=== PATIENT | female | born 1985 | race Caucasian/White ===

== ENCOUNTER → 2018-01-09 13:00 | Outpatient (CLI) | payer BC, SELFPAY ==
[2018-01-10 14:04] LABS: Basophils % 0.3 % (0.1-2.0); Eosinophils # 0.2 K/mm3 (0.0-0.4); Eosinophils % 1.8 % (0.1-12.0); Hematocrit 44.9 % (37.0-47.0); Hemoglobin 14.8 g/dL (12.2-16.2); Lymphocytes # 3.3 K/mm3 (0.7-4.5); Lymphocytes % 35.6 K/mm3 (10-50); Mean Corpuscular Hemoglobin 31.9 pg (27.0-31.2); Mean Corpuscular Volume 96.9 fl (81-99); Mean Platelet Volume 9.7 fl (7.4-10.4); Monocytes # 0.5 K/mm3 (0.1-1.0); Monocytes % 5.4 % (1.7-9.3); Neutrophils # 5.2 K/mm3 (1.8-7.8); Neutrophils % 56.9 % (37.0-80.0); Platelet Count 413 K/mm3 (142-424); Red Blood Count 4.64 M/mm3 (4.20-5.40); Red Cell Distribution Width 12.5 % (11.5-17.5); White Blood Count 9.2 K/mm3 (4.8-10.8)
[2018-01-10 14:11] LABS: Alanine Aminotransferase 118 U/L (12-78); Albumin Level 4.5 gm/dL (3.4-5.0); Albumin/Globulin Ratio 1.2 (1.1-1.8); Alkaline Phosphatase 119 U/L (46-116); Anion Gap 12.7 mEq/L (5-15); Aspartate Amino Transferase 38 U/L (15-37); Bilirubin,Total 0.3 mg/dL (0.2-1.0); Blood Urea Nitrogen 15 mg/dL (7-18); Calcium 10.2 mg/dL (8.5-10.1); Carbon Dioxide 28 mmol/L (21.0-32.0); Chloride 104 mmol/L (98-107); Chol/HDL Ratio 2.9 (1-3.5); Cholesterol 226 mg/dL (140-200); Creatinine,Serum 0.63 mg/dL (0.55-1.02); Estimated Glomerular Filt Rate 108 ml/min (>60); Free T4 (Free Thyroxine) 0.94 ng/dl (0.76-1.46); GFR (African American) 131 ML/MIN (>60); Globulin 3.8 gm/dl (1.3-3.2); Glucose 98 mg/dL (74-106); HDL Cholesterol 78 mg/dL (29-89); LDL Cholesterol 125 mg/dL (0-130); Potassium 4.7 mmoL/L (3.5-5.1); Sodium 140 mmol/L (136-145); Thyroid Stimulating Hormone 1.29 uIU/ml (0.358-3.740); Total Protein,Serum 8.3 gm/dL (6.4-8.2); Triglycerides 114 mg/dL (30-200); VLDL Cholesterol 23 mg/dL (0-40)
[2018-01-10 15:02] LABS: Hemoglobin A1C 5.6 % (0.0-7.0)
[2018-01-11 07:16] LABS: Hep A Ab, IgM Negative (Negative); Hepatitis B Core Antibody IgM Negative (Negative); Hepatitis B Surface Antigen Negative (Negative)
[2018-01-12 12:07] LABS: Hepatitis C Antibody >11.0 s/co ratio (0.0-0.9); Vitamin D 25 Hydroxy 55.9 ng/mL (30.0-100.0)
== END ==
PROVIDERS: Family Provider Internal Medicine Adolescent Medicine; PCP Nurse Practitioner Family; Visit Provider Nurse Practitioner Family
DX: R53.83 Other fatigue (principal)
CPT/HCPCS: 80053; 80061; 80074; 82652; 83036; 84439; 84443; 85025

== ENCOUNTER 2018-01-11 18:14 | Emergency (ER) | payer BC, SELFPAY ==
[2018-01-11 18:15] VITALS: BP 132/85; PULSE 85; RESP 18; TEMP 36.8; O2SAT 98; BMI 27.4
--- NOTE | 2018-01-11 18:17 | HMH.EDSOB ---
ED Disposition Clinical Impression: Allergic reaction Disposition: Home, Self-Care Condition on Discharge: Good Additional Instructions: 1- medrol dose pack. 2- zantac 150 mg po bid. 3- benadryl 25 mg po q 6 prn 4- follow up with pcp Federica. 5- return if needed. - Critical Care Critical Care Time: No Attestation: On , the high probability of a clinically significant, sudden or life threatening deterioration of the following system(s) required my full and direct attention, intervention and personal management. The time I documented below is in addition to time spent performing reported procedures but includes the following listed in this critical care notation. Medical Decision Making Vital Signs: 01/11/18 18:15 Temperature 98.2 F Temperature Source Oral Pulse Rate [Right Brachial] 85 Respiratory Rate 18 Blood Pressure [Right Arm] 132/85 Blood Pressure Mean [Right Arm] 100 Blood Pressure Source [Right Arm] Automatic Cuff Blood Pressure Position [Right Arm] Sitting 02 Sat by Pulse Oximetry 98 Oxygen Delivery Method Room Air - Lab Data Lab results reviewed: Yes: I reviewed the patient's lab results. Lab Results 01/11/18 18:25: Sodium 141, Potassium 3.8, Chloride 103, Carbon Dioxide 28, Anion Gap 13.8, BUN 13, Creatinine 0.87 D, Estimated Creat Clear 111, Estimated GFR 75, Est GFR ( Amer) 90 D, Glucose 95, Calcium 9.3, Total Bilirubin 0.4, AST 55 H D, ALT 121 H, Alkaline Phosphatase 110, Total Protein 8.6 H, Albumin 4.5, Globulin 4.1 H, Albumin/Globulin Ratio 1.1 Result diagrams: 01/11/18 18:25 Orders (Tests/Meds): ED MEDICATIONS Discontinued Medications Generic Name Dose Route Start Last Admin Trade Name Freq PRN Reason Stop Dose Admin Diphenhydramine HCl 25 mg 01/11/18 18:16 01/11/18 18:22 Benadryl 50mg/1ml Vial IV 01/11/18 18:17 25 mg ONCE ONE Administration Famotidine 20 mg 01/11/18 18:16 01/11/18 18:22 Pepcid 20mg/2ml Vial IV 01/11/18 18:17 20 mg ONCE ONE Administration Methylprednisolone Sodium Succinate 125 mg 01/11/18 18:16 01/11/18 18:22 Solu-Medrol 125mg/2ml Vial IV 01/11/18 18:17 125 mg ONCE ONE Administration ORDERS Category Date Time Status Complete Blood Count Auto Diff Stat Lab 01/11/18 18:25 Received - Kulwant Inquiry Pt receiving controlled substance: No Kulwant was queried for this patient: No Medical Decision Making Narrative: The patient felt better after medications and requested to be discharged. He has consumed 4 piece of the fish. I advised her for steroids H2 blockers and continue Benadryl every 6 hours. She is to return of the symptoms return. Resp/SOB HPI - General Chief Complaint: Allergic Reaction Stated Complaint: allergic reaction to fish - History of Present Illness 32 years old white female who reports that she ate tilapia fish 20 minutes ago and then developed throat closing and shortness of breath. Took Benadryl and it came immediately to the ED. looks anxious in no respiratory distress. She had history of multiple surgeries but is in no medication. Is been recently released from alf. MD Complaint: shortness of breath Onset (ago): minute(s) (20 Minutes.) Severity: moderate Consistency/Duration: constant Relieving factors: medication Exacerbating factors: nothing Associated symptoms: denies other symptoms Treatment prior to arrival: other (Benadryl.) - Related Data Home oxygen amount: none Previous Rx's Medication Instructions Recorded fluoxetine 20 mg tablet 40 mg PO DAILY #30 tab 01/09/18 trazodone 50 mg tablet 50 mg PO QHS PRN #30 tab 01/09/18 Allergies Allergy/AdvReac Type Severity Reaction Status Date / Time azithromycin [From ZITHROMAX] Allergy Mild RESP Verified 01/09/18 13:28 Azithromycin Allergy Severe [id number]/THROAT, Uncoded 12/27/17 10:13 HIVES NUTS (FOOD) Allergy Severe S-SWELLS-OR Uncoded 12/27/17 10:13 AL/THROAT [facility] His
--- NOTE | 2018-01-11 18:20 | ED_ITS ---
ED Disposition Clinical Impression: Allergic reaction Disposition: Home, Self-Care Condition on Discharge: Good Additional Instructions: 1- medrol dose pack. 2- zantac 150 mg po bid. 3- benadryl 25 mg po q 6 prn 4- follow up with pcp Federica. 5- return if needed. - Critical Care Critical Care Time: No Attestation: On , the high probability of a clinically significant, sudden or life threatening deterioration of the following system(s) required my full and direct attention, intervention and personal management. The time I documented below is in addition to time spent performing reported procedures but includes the following listed in this critical care notation. Medical Decision Making Vital Signs: 01/11/18 18:15 Temperature 98.2 F Temperature Source Oral Pulse Rate [Right Brachial] 85 Respiratory Rate 18 Blood Pressure [Right Arm] 132/85 Blood Pressure Mean [Right Arm] 100 Blood Pressure Source [Right Arm] Automatic Cuff Blood Pressure Position [Right Arm] Sitting 02 Sat by Pulse Oximetry 98 Oxygen Delivery Method Room Air - Lab Data Lab results reviewed: Yes: I reviewed the patient's lab results. Lab Results 01/11/18 18:25: Sodium 141, Potassium 3.8, Chloride 103, Carbon Dioxide 28, Anion Gap 13.8, BUN 13, Creatinine 0.87 D, Estimated Creat Clear 111, Estimated GFR 75, Est GFR ( Amer) 90 D, Glucose 95, Calcium 9.3, Total Bilirubin 0.4, AST 55 H D, ALT 121 H, Alkaline Phosphatase 110, Total Protein 8.6 H, Albumin 4.5, Globulin 4.1 H, Albumin/Globulin Ratio 1.1 Result diagrams: 01/11/18 18:25 Orders (Tests/Meds): ED MEDICATIONS Discontinued Medications Generic Name Dose Route Start Last Admin Trade Name Freq PRN Reason Stop Dose Admin Diphenhydramine HCl 25 mg 01/11/18 18:16 01/11/18 18:22 Benadryl 50mg/1ml Vial IV 01/11/18 18:17 25 mg ONCE ONE Administration Famotidine 20 mg 01/11/18 18:16 01/11/18 18:22 Pepcid 20mg/2ml Vial IV 01/11/18 18:17 20 mg ONCE ONE Administration Methylprednisolone Sodium Succinate 125 mg 01/11/18 18:16 01/11/18 18:22 Solu-Medrol 125mg/2ml Vial IV 01/11/18 18:17 125 mg ONCE ONE Administration ORDERS Category Date Time Status Complete Blood Count Auto Diff Stat Lab 01/11/18 18:25 Received - Kulwant Inquiry Pt receiving controlled substance: No Kulwant was queried for this patient: No Medical Decision Making Narrative: The patient felt better after medications and requested to be discharged. He has consumed 4 piece of the fish. I advised her for steroids H2 blockers and continue Benadryl every 6 hours. She is to return of the symptoms return. Resp/SOB HPI - General Chief Complaint: Allergic Reaction Stated Complaint: allergic reaction to fish - History of Present Illness 32 years old white female who reports that she ate tilapia fish 20 minutes ago and then developed throat closing and shortness of breath. Took Benadryl and it came immediately to the ED. looks anxious in no respiratory distress. She had history of multiple surgeries but is in no medication. Is been recently released from halfway. Complaint: shortness of breath Onset (ago): minute(s) (20 Minutes.) Severity: moderate Consistency/Duration: constant Relieving factors: medica
[2018-01-11 18:54] LABS: Alanine Aminotransferase 121 U/L (12-78); Albumin Level 4.5 gm/dL (3.4-5.0); Albumin/Globulin Ratio 1.1 (1.1-1.8); Alkaline Phosphatase 110 U/L (46-116); Anion Gap 13.8 mEq/L (5-15); Aspartate Amino Transferase 55 U/L (15-37); Bilirubin,Total 0.4 mg/dL (0.2-1.0); Blood Urea Nitrogen 13 mg/dL (7-18); Calcium 9.3 mg/dL (8.5-10.1); Carbon Dioxide 28 mmol/L (21.0-32.0); Chloride 103 mmol/L (98-107); Creatinine Clearance Estimated 111 mL/min (0-300); Creatinine,Serum 0.87 mg/dL (0.55-1.02); Estimated Glomerular Filt Rate 75 ml/min (>60); GFR (African American) 90 ML/MIN (>60); Globulin 4.1 gm/dl (1.3-3.2); Glucose 95 mg/dL (74-106); Potassium 3.8 mmoL/L (3.5-5.1); Sodium 141 mmol/L (136-145); Total Protein,Serum 8.6 gm/dL (6.4-8.2)
[2018-01-11 19:00] LABS: Basophils % 0.3 % (0.1-2.0); Eosinophils # 0.1 K/mm3 (0.0-0.4); Eosinophils % 1.2 % (0.1-12.0); Hematocrit 43.3 % (37.0-47.0); Hemoglobin 14.5 g/dL (12.2-16.2); Lymphocytes # 4.1 K/mm3 (0.7-4.5); Lymphocytes % 39.2 K/mm3 (10-50); Mean Corpuscular HGB Conc 33.4 g/dL (31.8-35.4); Mean Corpuscular Hemoglobin 31.5 pg (27.0-31.2); Mean Corpuscular Volume 94.2 fl (81-99); Mean Platelet Volume 8.3 fl (7.4-10.4); Monocytes # 0.6 K/mm3 (0.1-1.0); Neutrophils # 5.5 K/mm3 (1.8-7.8); Neutrophils % 53.2 % (37.0-80.0); Platelet Count 408 K/mm3 (142-424); Red Blood Count 4.59 M/mm3 (4.20-5.40); Red Cell Distribution Width 12.3 % (11.5-17.5); White Blood Count 10.4 K/mm3 (4.8-10.8)
[2018-01-11 19:07] VITALS: BP 123/75; PULSE 82; RESP 18; TEMP 36.8; O2SAT 99
== END 2018-01-11 19:07 | disposition home or self-care (01) ==
PROVIDERS: Emergency Provider Emergency Medicine; Family Provider Internal Medicine Adolescent Medicine; PCP Nurse Practitioner Family
DX: T78.40XA Allergy, unspecified, initial encounter (principal); Z88.1 Allergy status to other antibiotic agents; F32.9 Major depressive disorder, single episode, unspecified; G47.00 Insomnia, unspecified; F17.210 Nicotine dependence, cigarettes, uncomplicated
CPT/HCPCS: 80053; 85025; 96374; 96375; 99282

== ENCOUNTER → 2018-01-16 14:53 | Outpatient (CLI) | payer BC, SELFPAY | PROVIDERS: PCP Nurse Practitioner Family; Visit Provider Nurse Practitioner Family | DX: R00.0 Tachycardia, unspecified (principal) | CPT/HCPCS: 93005; 93225; 93226 ==

== ENCOUNTER → 2018-12-13 17:59 | Outpatient (CLI) | payer BC, SELFPAY ==
--- NOTE | 2018-12-13 18:01 | XR_ITS ---
XR foot LT min 3V HISTORY: ITS.REASON: Heal pain ORDERING PHYSICIAN: Richi Iyer PATIENT AGE: 33 years COMPARISON: None FINDINGS: No fracture or dislocation. No lytic or blastic change. There is normal mineralization.. The joint spaces are well-preserved. No significant degenerative/arthritic changes. No erosive changes evident. No calcaneal spurs apparent IMPRESSION: Negative, no acute finding
== END ==
PROVIDERS: PCP Emergency Medicine; Visit Provider Nurse Practitioner Family
DX: M79.672 Pain in left foot (principal)
CPT/HCPCS: 73630

== ENCOUNTER → 2019-01-23 14:12 | Outpatient (CLI) | payer BC, SELFPAY ==
--- NOTE | 2019-01-23 14:30 | XR_ITS ---
XR hip LT 2-3V w/pelvis HISTORY: ITS.REASON: L Hip pain ORDERING PHYSICIAN: Richi Iyer PATIENT AGE: 33 years COMPARISON: None FINDINGS: No fracture or dislocation is evident. No significant degenerative change. No lytic or blastic change. Unremarkable soft tissues there is a tubal ligation clip on the left IMPRESSION: Negative hip
== END ==
PROVIDERS: PCP Emergency Medicine; Visit Provider Nurse Practitioner Family
DX: M25.552 Pain in left hip (principal)
CPT/HCPCS: 73502

== ENCOUNTER 2020-06-23 07:54 | Outpatient (RCR) | payer BC, SELFPAY ==
--- NOTE | 2020-06-23 09:16 | HMH.PTOPEV ---
PT Outpatient Evaluation Rehab PT Outpatient Evaluation Start: 06/23/20 08:23 Freq: Status: Active Protocol: Document 06/23/20 08:25 OMAR (Rec: 06/23/20 09:16 OMAR [id number]) Electronically Signed By Davey Silva, PT 06/23/20 08:25 Outpatient Therapy Subjective History Subjective History Pt reports h/o chronic mid back pain for ~2 yrs, however, reports exacerbation over the last ~2 months. Pt reports R> L sided mid back pain, intermittent referred pain into R UT area. Pt reports ' sometimes it takes my breath away'. Chief Complaint Pain,Stiff Symptom Type Ache,Sharp,Dull Symptoms Relieved By Rest/Positioning,Heat Symptoms Aggravated By Bending/Stooping,Lifting Prior Functional Limitations Reaching,Lifting,Housework Current Functional Limitations Reaching,Lifting,Housework Symptom Description Constant but Variable Level of pain today (0-10) 7 Pain scale - at its best (0-10) 7 Pain scale - at its worst (0-10) 9 Cervical Eval Palpation Cervical Muscles R Cervical Paraspinal,R CT Junction,R Upper Trapezius,R Thoracic Paraspinals,L Thoracic Paraspinals Cervical/Thoracic Palpation Findings Tenderness,Trigger Point, Muscle Guarding Posture Head/C-Spine Posture Sitting Position Flexed Head/C-Spine Posture Standing Position Flexed Flexibility Deficits Upper Trapezius Muscle Length (L) Mild Tightness,(R) Moderate Tightness Levaetor Scapulae Muscle Length (L) Mild Tightness,(R) Moderate Tightness Scalene Group Muscle Length (R) Mild Tightness,(L) Mild Tightness Passive Joint Mobility Cervical PIVM Dec: R C5/6 L C5/6 R C6/7 L C6/7 R C7/T1 L C7/T1 WNL: R OA L OA R AA L AA R C2/3 L C2/3 R C3/4 L C3/4 R C4/5 L C4/5 AROM Cervical Spine Extension Active Range of 0-55 Motion (degrees)
== END 2020-06-23 08:47 | disposition home or self-care (01) ==
LOC: PT 07:54
PROVIDERS: PCP Emergency Medicine; Visit Provider Nurse Practitioner Family
DX: M54.9 Dorsalgia, unspecified (principal)
CPT/HCPCS: 20560; 97010; 97014; 97035; 97110; 97140; 97163; G0283

== ENCOUNTER 2020-10-13 10:00 | Emergency (ER) | payer BC, SELFPAY ==
[2020-10-13 10:04] VITALS: BP 132/86; PULSE 93; RESP 16; TEMP 37.1; O2SAT 96; BMI 33.3
--- NOTE | 2020-10-13 10:24 | HMH.EDGENADL ---
ED Disposition Clinical Impression: Odynophagia Disposition: Home, Self-Care Condition on Discharge: Good Instructions: DI for Esophageal Dysphagia Additional Instructions: Protonix as prescribed. Follow-up with gastroenterology, Dr. Sweet, call for appointment. Return to the emergency department if unable to swallow. Prescriptions: Pantoprazole Sodium [Protonix 40mg tablet] 40 mg PO DAILY #10 tab Transmission Status: Pending to [id number] Referrals: Shravan Polanco MD [Primary Care Provider] - - Critical Care Critical Care Time: No Attestation: On , the high probability of a clinically significant, sudden or life threatening deterioration of the following system(s) required my full and direct attention, intervention and personal management. The time I documented below is in addition to time spent performing reported procedures but includes the following listed in this critical care notation. Medical Decision Making - Kulwant Inquiry Pt receiving controlled substance: No Vital Signs: 10/13/20 10:04 10/13/20 10:37 Temperature 98.8 F Temperature Source Oral Pulse Rate [Right Radial] 93 H 81 Respiratory Rate 16 20 Blood Pressure [Right Arm] 132/86 115/57 L Blood Pressure Mean [Right Arm] 101 76 Blood Pressure Source [Right Arm] Automatic Cuff Automatic Cuff Blood Pressure Position [Right Arm] Sitting Sitting 02 Sat by Pulse Oximetry 96 92 L Oxygen Delivery Method Room Air Room Air Orders (Tests/Meds): ED MEDICATIONS Discontinued Medications Generic Name Dose Route Start Last Admin Trade Name Freq PRN Reason Stop Dose Admin Belladonna Alkaloids 60 ml 10/13/20 10:35 10/13/20 10:40 Gi Cocktail 60ml Udc PO 10/13/20 10:36 60 ml ONCE ONE Administration ORDERS Category Date Time Status Chest XR 2 view (NOT portable) [XR chest 2V] Stat Exams 10/13/20 10:35 Taken - Radiology Data #1 Image(s): Chest Image Reviewed: Yes I reviewed the patient's radiology image, Yes I discussed the image results w/the radiologist Atelectasis right middle lobe, and no mediastinal mass - Reevaluation(s) Time: 11:06 Reevaluation #1: Symptoms improved with GI cocktail. I suspect esophagitis. I will start a PPI and refer to gastroenterology. General Adult HPI - General Chief complaint: PAIN Stated complaint: feel likes something is stuck in chest Time Seen by Provider: 10/13/20 10:30 Mode of Arrival: Ambulatory Limitations: No Limitations Description of Symptoms (Recalled from ER Triage Doc. by RN): Pt reports for approx 1 week has been having difficulty with swallowing, states when she goes to swallow solids and liquids at times when the intake gets to her upper chest area she begins having pain and feels like she has difficulty getting the intake down. Pt reports this is an intermittent thing, states it does not happen with each po intake. - History of Present Illness HPI narrative: 1 week history of odynophagia. She gets pain at about the level of her mid sternum when she swallows liquids, solids, or pills, but is able to swallow them. She has no pain in between. No oral lesions. No history of similar symptoms, no history of GERD, no history of hiatal hernia. She otherwise has felt well. No fever. No [id number] medications taken for the symptoms. - Related Data Home Medications Medication Instructions Recorded Confirmed buprenorphine 8 mg-naloxone 2 mg 1 film BUCCAL BID each 06/03/20 10/13/20 sublingual film Buspirone HCl [Buspar 10mg 10 mg PO TID 10/13/20 10/13/20 tablet] Fluoxetine HCl 40 mg PO DAILY 10/13/20 10/13/20 Quetiapine Fumarate 200 mg PO DAILY 10/13/20 10/13/20 Previous Rx's Medication Instructions Recorded albuterol sulfate 90 mcg/actuation 1 puff INHALATION Q6H PRN #8 g 12/27/19 aerosol inhaler Pantoprazole Sodium [Protonix 40mg 40 mg PO DAILY #10 tab 10/13/20 tablet] Allergies Allergy/AdvReac
--- NOTE | 2020-10-13 10:35 | XR_ITS ---
PROCEDURE: XR CHEST 2V CLINICAL HISTORY: odynophagia COMPARISON: No exams were available for comparison FINDINGS: The cardiomediastinal silhouette and pulmonary vascularity are within normal limits. There are mild atelectatic changes in the right middle lobe. No acute bony abnormalities. IMPRESSION: Right middle lobe atelectasis Dictated by: Francisco Louise MD 10/13/2020 11:09 Francisco Louise MD in [place] 10/13/2020 11:09
[2020-10-13 10:37] VITALS: BP 115/57; PULSE 81; RESP 20; O2SAT 92
[2020-10-13 11:11] VITALS: BP 115/60; PULSE 80; RESP 15; TEMP 37.1; O2SAT 98
== END 2020-10-13 11:16 | disposition home or self-care (01) ==
PROVIDERS: Emergency Provider Emergency Medicine; PCP Emergency Medicine
DX: R13.10 Dysphagia, unspecified (principal); F41.8 Other specified anxiety disorders; F17.210 Nicotine dependence, cigarettes, uncomplicated; B18.2 Chronic viral hepatitis C
CPT/HCPCS: 71046; 99282

== ENCOUNTER 2021-03-22 13:40 | Emergency (ER) | payer BC, SELFPAY ==
[2021-03-22 13:46] VITALS: BP 148/97; PULSE 88; RESP 18; TEMP 37; O2SAT 98; BMI 36.6
[2021-03-22 13:56] VITALS: BP 148/97; PULSE 88; RESP 18; TEMP 37; O2SAT 98; BMI 36.6
--- NOTE | 2021-03-22 14:21 | HMH.EDUTC ---
[facility] [place] Impression: Vomiting and diarrhea Headache Qualifiers: Headache type: unspecified Headache chronicity pattern: unspecified pattern Intractability: not intractable Qualified Code(s): R51.9 - Headache, unspecified Disposition: Home, Self-Care Condition on Discharge: Good Instructions: DI for Headache, Ondansetron Additional Instructions: *Monitor Temp, Over the counter Motrin or Tylenol as directed/as needed Tylenol every 4 hours and Motrin every 6 hours (as long as your family doctor has told you that you can take it) for fever or pain. and straight to ER if unable to lower temp less than 101.0 after medication given Drink extra fluids with and between meals. If you have difficulty drinking, try very small amounts of water or suck on ice chips. ? Avoid fruit juices, as these do not replace minerals and can actually increase diarrhea. ? Children and adults can use sports drinks to replenish electrolytes. Younger children and infants should use products formulated for children, like oral rehydration solutions. ? Eat food in small amounts and let your stomach recover. ? Get lots of rest. You may feel tired or weak. ? No greasy or fried foods for the next 24-48 hours BRAT diet Bananas Rice Apples and [place] ? Make sure to drink plenty of liquids ? Return if needed ? Straight to ER if any life threatening symptoms ? Zofran as prescribed ? Follow up with family doctor in the next 48-72 hours if no improvement or any worsening of symptoms Follow up IMMEDIATELY for new or worsening symptoms or no Noticeable improvement over the next 48-72 hours. 911 for difficulty breathing or swallowing Prescriptions: Ondansetron [Zofran 4mg ODT] 4 mg PO TIDP PRN #6 tab PRN Reason: Nausea And Vomiting Transmission Status: Received by [id number] Referrals: Shravan Polanco MD [Primary Care Provider] - As needed Forms: Work/School Release Time of Disposition: 14:51 Medical Decision Making - Kulwant Inquiry Pt receiving controlled substance: No Kulwant was queried for this patient: No Vital Signs: 03/22/21 13:46 03/22/21 13:56 03/22/21 14:46 Temperature 98.6 F 98.6 F 98.6 F Temperature Source Oral Oral Oral Pulse Rate 88 Pulse Rate [Left Radial] 88 88 Respiratory Rate 18 18 18 Blood Pressure 148/97 H Blood Pressure [Right Arm] 148/97 H 148/97 H Blood Pressure Mean [Right Arm] 114 114 Blood Pressure Source Automatic Cuff Blood Pressure Position Sitting Blood Pressure Position [Right Arm] Sitting 02 Sat by Pulse Oximetry 98 98 Oxygen Delivery Method Room Air Room Air Orders (Tests/Meds): ED MEDICATIONS Discontinued Medications Generic Name Dose Route Start Last Admin Trade Name Prerna PRN Reason Stop Dose Admin Ketorolac Tromethamine 30 mg 03/22/21 14:27 03/22/21 14:34 Ketorolac 60mg/2ml Vial IM 03/22/21 14:28 30 mg ONCE ONE Administration Ondansetron HCl 4 mg 03/22/21 14:29 03/22/21 14:34 Ondansetron 4mg Odt SL 03/22/21 14:30 4 mg ONCE ONE Administration Medical Decision Narrative: Patient states that she has taken Torodol and zofran in the past without complications or reactions with her medication Patient states that she is feeling much better after medication [facility] [place] - General Stated complaint: vomiting, migraine Time Seen by Provider: 03/22/21 14:21 Mode of Arrival: Ambulatory Source of Information: Patient Limitations: No Limitations HEENT Symptoms (Recalled from RN notes): No Resp Symptoms (Recalled from RN notes): No Skin Symptoms (Recalled from RN notes): No MS Symptoms (Recalled from RN notes): No Functional Status (Recalled from RN notes): WNL - History of Present Illness Provider Complaint: Patient state that she has been having nausea vomiting and diarrhea since this morning State that also she has a history of migraines and feels like she is starting to get one States that she hasnt taken anything today for her headach
[2021-03-22 14:46] VITALS: BP 148/97; PULSE 88; RESP 18; TEMP 37; O2SAT 98
== END 2021-03-22 14:53 | disposition home or self-care (01) ==
LOC: ER 13:47 → UTC 13:48
PROVIDERS: Emergency Provider Nurse Practitioner; PCP Emergency Medicine
DX: R11.10 Vomiting, unspecified (principal); R51.9 Headache, unspecified; F41.8 Other specified anxiety disorders; F17.210 Nicotine dependence, cigarettes, uncomplicated
CPT/HCPCS: 96372; 99202; G0463

== ENCOUNTER 2021-03-23 17:02 | Emergency (ER) | payer BC, SELFPAY ==
[2021-03-23 17:02] VITALS: BP 135/73; PULSE 88; RESP 16; TEMP 36.8; O2SAT 98; BMI 36.6
--- NOTE | 2021-03-23 17:07 | CT_ITS ---
PROCEDURE INFORMATION: Exam: CT Head Without Contrast Exam date and time: 03/23/2021 5:07 PM Age: 35 years old Clinical indication: Pain; Headache; Patient HX: Migraine x 4 days TECHNIQUE: Imaging protocol: Computed tomography of the head without contrast. Radiation optimization: All CT scans at this facility use at least one of these dose optimization techniques: automated exposure control; mA and/or kV adjustment per patient size (includes targeted exams where dose is matched to clinical indication); or iterative reconstruction. COMPARISON: No relevant prior studies available. FINDINGS: Brain: There is a 2.6 x 1.7 cm acute intraparenchymal hemorrhage within the left frontal convexity. Minimal surrounding edema is present. There is no mass effect or midline shift. Cerebral ventricles: No hydrocephalus. Bones/joints: No acute fracture. Paranasal sinuses: There is no acute sinusitis. Mastoid air cells: Visualized mastoid air cells are well aerated. Orbital cavity: Unremarkable as visualized. Soft tissues: Unremarkable. IMPRESSION: 2.6 cm acute left frontal lobe hemorrhage
--- NOTE | 2021-03-23 17:24 | HMH.EDGENADL ---
ED Disposition Clinical Impression: Cerebral hemorrhage Disposition: Xfer Short-Term Hosp Condition on Discharge: Serious Referrals: PCP,No [Primary Care Provider] - Forms: Transfer Record - ED - Critical Care Critical Care Time: No Attestation: On , the high probability of a clinically significant, sudden or life threatening deterioration of the following system(s) required my full and direct attention, intervention and personal management. The time I documented below is in addition to time spent performing reported procedures but includes the following listed in this critical care notation. Medical Decision Making - Kulwant Inquiry Pt receiving controlled substance: Yes Kulwant was queried for this patient: Yes Risks and benefits of using a controlled substance: were not discussed with pt by me Vital Signs: 03/23/21 17:02 03/23/21 17:57 03/23/21 18:00 Temperature 98.2 F Temperature Source Oral Pulse Rate 82 74 Pulse Rate [Radial] 88 Respiratory Rate 16 16 Blood Pressure 128/85 137/82 Blood Pressure [Right Arm] 135/73 Blood Pressure Mean 100 Blood Pressure Mean [Right Arm] 93 Blood Pressure Position Sitting Blood Pressure Position [Right Arm] Sitting 02 Sat by Pulse Oximetry 98 95 98 03/23/21 18:10 Temperature Temperature Source Pulse Rate 92 H Pulse Rate [Radial] Respiratory Rate Blood Pressure 145/90 H Blood Pressure [Right Arm] Blood Pressure Mean Blood Pressure Mean [Right Arm] Blood Pressure Position Sitting Blood Pressure Position [Right Arm] 02 Sat by Pulse Oximetry - Lab Data Lab Results 03/23/21 17:30: WBC 12.9 H, RBC 4.77, Hgb 14.5, Hct 44.7, MCV 93.7, MCH 30.4, MCHC 32.5, RDW 13.6, Plt Count 376, MPV 7.6, Neut % (Auto) 58.7, Lymph % (Auto) 33.7, Lewis % (Auto) 4.3, Eos % (Auto) 2.6, Baso % (Auto) 0.7, Neut # (Auto) 7.6, Lymph # (Auto) 4.3, Lewis # (Auto) 0.6, Eos # (Auto) 0.3, Baso # (Auto) 0.1 03/23/21 17:30: Sodium 139, Potassium 4.2, Chloride 106, Carbon Dioxide 25, Anion Gap 12.2, BUN 19 H, Creatinine 0.70, Estimated Creat Clear 158, Estimated GFR 94, Est GFR ( Amer) 114, Glucose 107 H, Calcium 9.6, Total Bilirubin 0.3, AST 33, ALT 29, Alkaline Phosphatase 121, Total Protein 8.1, Albumin 5.0, Globulin 3.1, Albumin/Globulin Ratio 1.6 03/23/21 17:30: PT 10.1, INR 0.85 L, APTT 28.8 Result diagrams: 03/23/21 17:30 03/23/21 17:30 Orders (Tests/Meds): ED MEDICATIONS Discontinued Medications Generic Name Dose Route Start Last Admin Trade Name Freq PRN Reason Stop Dose Admin Diphenhydramine HCl 25 mg 03/23/21 17:27 03/23/21 18:11 Diphenhydramine 50mg/Ml Vial IV 03/23/21 17:28 Not Given ONCE ONE Ketorolac Tromethamine 30 mg 03/23/21 17:27 03/23/21 18:11 Ketorolac 30mg/Ml Vial IV 03/23/21 17:28 Not Given ONCE ONE Morphine Sulfate 4 mg 03/23/21 17:59 03/23/21 18:03 Morphine 4mg/Ml Syringe IV 03/23/21 18:00 4 mg ONCE ONE Administration Ondansetron HCl 4 mg 03/23/21 17:59 03/23/21 18:03 Ondansetron 4mg/2ml Vial IV 03/23/21 18:00 4 mg ONCE ONE Administration Prochlorperazine Edisylate 5 mg 03/23/21 17:27 03/23/21 18:10 Prochlorperazine 10mg/2ml Vial IV 03/23/21 17:28 Not Given ONCE ONE Sodium Chloride 1,000 ml 03/23/21 17:28 03/23/21 17:38 Sodium Chloride 0.9% 1000ml Bag IV 03/23/21 17:29 1,000 ml BOLUS ONE Administration ORDERS Category Date Time Status C-Reactive Protein Stat Lab 03/23/21 18:35 Ordered Drug Screen,Urine Stat Lab 03/23/21 17:18 Ordered Erythrocyte Sedimentation Rate Stat Lab 03/23/21 18:35 Ordered Lactic Acid Stat Lab 03/23/21 18:35 Ordered Urinalysis and Microscopic Stat Lab 03/23/21 17:13 Ordered Blood Culture Stat Micro 03/23/21 18:35 Ordered - CT Data CT Scan: Head Time Received: 18:[address] Reviewed: Yes: I discussed the CT results w/the radiologist, I have viewed the radiologist's interpretation Findings Narrative: PROCE
--- NOTE | 2021-03-23 17:31 | PC.NURSE ---
pt going to rad
[2021-03-23 17:38] LABS: Basophils # 0.1 K/mm3 (0-0.2); Basophils % 0.7 % (0.1-2.0); Eosinophils # 0.3 K/mm3 (0.0-0.4); Eosinophils % 2.6 % (0.1-12.0); Hematocrit 44.7 % (37.0-47.0); Hemoglobin 14.5 g/dL (12.2-16.2); Lymphocytes # 4.3 K/mm3 (0.7-4.5); Lymphocytes % 33.7 % (10-50); Mean Corpuscular HGB Conc 32.5 g/dL (31.8-35.4); Mean Corpuscular Hemoglobin 30.4 pg (27.0-31.2); Mean Corpuscular Volume 93.7 fl (81-99); Mean Platelet Volume 7.6 fl (7.4-10.4); Monocytes # 0.6 K/mm3 (0.1-1.0); Monocytes % 4.3 % (1.7-9.3); Neutrophils # 7.6 K/mm3 (1.8-7.8); Neutrophils % 58.7 % (37.0-80.0); Platelet Count 376 K/mm3 (142-424); Red Blood Count 4.77 M/mm3 (4.20-5.40); Red Cell Distribution Width 13.6 % (11.5-17.5); White Blood Count 12.9 K/mm3 (4.8-10.8)
--- NOTE | 2021-03-23 17:43 | PC.NURSE ---
pt gone to rad .
[2021-03-23 17:53] LABS: Alanine Aminotransferase 29 U/L (12-78); Albumin/Globulin Ratio 1.6 (1.1-1.8); Alkaline Phosphatase 121 U/L (38-126); Anion Gap 12.2 mEq/L (5-15); Aspartate Amino Transferase 33 U/L (14-36); Bilirubin,Total 0.3 mg/dl (0.2-1.3); Blood Urea Nitrogen 19 mg/dl (7-17); Calcium 9.6 mg/dl (8.4-10.2); Carbon Dioxide 25 mmol/L (22.0-30.0); Chloride 106 mmol/L (98-107); Creatinine Clearance Estimated 158 mL/min (50-200); Estimated Glomerular Filt Rate 94 ml/min (>60); GFR (African American) 114 ML/MIN (>60); Globulin 3.1 g/dL (1.3-3.2); Glucose 107 mg/dl (74-100); Potassium 4.2 mmoL/L (3.5-5.1); Sodium 139 mmol/L (136-145); Total Protein,Serum 8.1 g/dl (6.3-8.2)
[2021-03-23 17:57] VITALS: BP 128/85; PULSE 82; O2SAT 95
[2021-03-23 18:00] VITALS: BP 137/82; PULSE 74; RESP 16; O2SAT 98
--- NOTE | 2021-03-23 18:01 | PC.NURSE ---
speaking with [facility] at this time.
--- NOTE | 2021-03-23 18:09 | PC.NURSE ---
Calling [facility] at this time.
[2021-03-23 18:10] VITALS: BP 145/90; PULSE 92
--- NOTE | 2021-03-23 18:11 | PC.NURSE ---
[facility] to return call.
--- NOTE | 2021-03-23 18:30 | PC.NURSE ---
speaking with [facility] at this time.
[2021-03-23 18:35] LABS: Activated Partial Thrombo Time 28.8 seconds (22.8-30.6); INR 0.85 (0.9-1.1); Prothrombin Time 10.1 seconds (10.1-12.5)
--- NOTE | 2021-03-23 18:45 | PC.NURSE ---
report called to corey murray
[2021-03-23 18:50] LABS: C-Reactive Protein 5.5 mg/L (0-4)
--- NOTE | 2021-03-23 19:00 | PC.NURSE ---
pt awake, will not answer questions. pt will just stare at nurse, will laugh inapprop. mother at bedside. pt will not answer mother's questions. pt will not obey commands. dr posey at bedside
[2021-03-23 19:11] LABS: Erythrocyte Sedimentation Rate 14 mm/hr (0-20)
[2021-03-23 19:12] VITALS: BP 138/78; PULSE 88; RESP 16; TEMP 36.6; O2SAT 98
[2021-03-23 19:34] LABS: Lactic Acid 1.3 mmol/L (0.7-2.1)
== END 2021-03-23 19:17 | disposition short-term general hospital (02) ==
PROVIDERS: Emergency Provider Emergency Medicine
DX: I61.9 Nontraumatic intracerebral hemorrhage, unspecified (principal); H53.8 Other visual disturbances; F17.210 Nicotine dependence, cigarettes, uncomplicated; B18.2 Chronic viral hepatitis C; F41.8 Other specified anxiety disorders; F19.11 Other psychoactive substance abuse, in remission
CPT/HCPCS: 70450; 80053; 83605; 85025; 85610; 85651; 85730; 86140; 87040; 96365; 96375; 99284; J2405

== ENCOUNTER 2021-04-15 10:51 | Outpatient (RCR) | payer BC, SELFPAY | END 2021-04-15 10:55 | disposition home or self-care (01) | LOC: OT 10:51 | PROVIDERS: Visit Provider Student in an Organized Health Care Education/Training Program | DX: I63.9 Cerebral infarction, unspecified (principal) | CPT/HCPCS: 97165 ==

== ENCOUNTER 2021-04-15 10:55 | Outpatient (RCR) | payer BC, SELFPAY | END 2021-04-15 10:59 | disposition home or self-care (01) | LOC: PT 10:55 | PROVIDERS: Visit Provider Student in an Organized Health Care Education/Training Program | DX: I63.9 Cerebral infarction, unspecified (principal) | CPT/HCPCS: 97163 ==

== ENCOUNTER 2021-06-03 10:00 | Outpatient (RCR) | payer BC, SELFPAY ==
--- NOTE | 2021-04-13 12:24 | HMH.SLAPHASI ---
Speech & Language Evaluation Speech/Language Aphasia Evaluation Start: 04/13/21 12:17 Freq: once Status: Complete Protocol: Document 04/13/21 12:17 LIZY (Rec: 04/13/21 12:24 LIZY [id number]) Aphasia Assessment/Goals/Plan Assessment Date of Evaluation: 04/13/21 Evaluation Type Initial Certification Assessment/Problems CVA Does Patient Qualify for Service Yes Qualify/Failure Comment Based on evaluation results, Caroline qualifies for speech therapy in the areas of auditory comprehension, reading comprehension, and verbal expression. Plan Pt will be seen # times/week 2 for # weeks 8 Anticipate reaching STG in # weeks 4 Anticipate reaching LTG in # weeks 8 Pt/Guardian verbally ack understanding Yes of dx/prognosis/goals G -code Required No STG-Auditory Comprehension Sentence Level 90 Paragraph Level 90 3rd Element 90 4th Element 90 STG-Reading Comprehension Reading Sentences & Ans Questions 90 Reading Paragraphs & Ans Questions 90 STG-Verbal Expressive Language Sentence Completion 90 Naming Actions & Describing Objects 90 Make Up Sentences 90 Define Words 90 Detention Goals Increase auditory comprehension skills Yes to communicate w/family & friends Increase verbal expression skills to Yes communicate w/family & friends. Speech & Language HPI History Present Illness Rehab Services Assessed Speech therapy Is this evaluation r/t stroke? Yes Therapy History Seen by other [facility] therapists Yes Who/When/Recommendations [facility] Aphasia Evaluations Communication Speech Intelligibility WFL Auditory Comprehension Yes: Word Level Sentences No: Following Directions Paragraph Conversation Reading Comprehension Yes: Letter Naming Word Naming No: Sentences Paragraphs Verbal Expressive Language Yes: Automatic Speech Repetition Abilities Word Level Naming No: Completing Sentences Naming Actions/Objects Sentence Level Defining Words Written Language Yes: Signature Copy Shapes
== END 2021-06-03 10:05 | disposition home or self-care (01) ==
LOC: ST 10:00
PROVIDERS: Visit Provider Student in an Organized Health Care Education/Training Program
DX: I63.9 Cerebral infarction, unspecified (principal)
CPT/HCPCS: 92523; 97129; 97130

== ENCOUNTER → 2021-10-01 11:01 | Outpatient (CLI) | payer BC, SELFPAY | PROVIDERS: Visit Provider Orthopaedic Surgery Foot and Ankle Surgery | DX: Z01.818 Encounter for other preprocedural examination (principal); Z11.52 Encounter for screening for COVID-19 | CPT/HCPCS: C9803; U0003; U0005 ==

== ENCOUNTER → 2021-12-01 11:01 | Outpatient (CLI) | payer BC, SELFPAY | PROVIDERS: PCP Emergency Medicine; Visit Provider Nurse Practitioner | DX: U07.1 COVID-19 (principal) | CPT/HCPCS: C9803; U0003; U0005 ==

== ENCOUNTER 2022-01-04 15:00 | Outpatient (RCR) | payer OTHER, BC, SELFPAY | END 2022-01-04 15:05 | disposition home or self-care (01) | LOC: PT 15:00 | PROVIDERS: Visit Provider Nurse Practitioner Family | DX: S93.432D Sprain of tibiofibular ligament of left ankle, subsequent encounter (principal) | CPT/HCPCS: 97010; 97014; 97033; 97110; 97112; 97140; 97163; 97164; G0283 ==

== ENCOUNTER → 2022-02-16 10:40 | Outpatient (CLI) | payer BC, SELFPAY ==
--- NOTE | 2022-02-16 10:40 | US_ITS ---
FINAL REPORT CLINICAL HISTORY: Abnormal Irregular Bleeding FINDINGS: Transvaginal sonographic images of the pelvis were obtained. The uterus is retroverted and measures 7.0 x 4.8 x 4.3 cm. The endometrium measures 6 mm, which is within normal limits. There is a hypoechoic focus measuring 2.5 x 1.8 cm and apparently arising from the lower uterine segment. This is probably due to a pedunculated fibroid. The right ovary measures 3.1 cm in length and left ovary measures 2.5 cm in length. Normal blood flow seen to the ovaries. There is no evidence of free fluid. IMPRESSION: Retroverted uterus with a pedunculated fibroid. Reviewed, Interpreted and Dictated by Juan Jose Strauss MD Transcribed by Venessa Villanueva Authenticated by Juan Jose Strauss MD on 02/16/2022 12:27:05 PM [facility]
== END ==
PROVIDERS: PCP Emergency Medicine; Visit Provider Nurse Practitioner Obstetrics & Gynecology
DX: N93.9 Abnormal uterine and vaginal bleeding, unspecified (principal)
CPT/HCPCS: 76830

== ENCOUNTER → 2022-03-17 16:38 | Outpatient (CLI) | payer BC, SELFPAY ==
[2022-03-17 14:13] LABS: Alanine Aminotransferase 77 U/L (12-78); Albumin Level 4.3 g/dl (3.5-5.0); Albumin/Globulin Ratio 1.7 (1.1-1.8); Alkaline Phosphatase 134 U/L (38-126); Anion Gap 11.8 mEq/L (5-15); Aspartate Amino Transferase 48 U/L (14-36); Bilirubin,Total 0.5 mg/dl (0.2-1.3); Blood Urea Nitrogen 13 mg/dl (7-17); Calcium 9.1 mg/dl (8.4-10.2); Carbon Dioxide 23 mmol/L (22.0-30.0); Chloride 106 mmol/L (98-107); Cholesterol 206 mg/dl (140-200); Estimated Glomerular Filt Rate 112 ml/min (>60); GFR (African American) 135 ML/MIN (>60); Globulin 2.5 g/dL (1.3-3.2); Glucose 98 mg/dl (74-100); HDL Cholesterol 51 mg/dl (40-60); Potassium 3.8 mmoL/L (3.5-5.1); Sodium 137 mmol/L (136-145); Total Protein,Serum 6.8 g/dl (6.3-8.2); Triglycerides 201 mg/dl (30-150); VLDL Cholesterol 40 mg/dL (0-40)
[2022-03-17 14:17] LABS: Basophils # 0.1 K/mm3 (0-0.2); Basophils % 1.4 % (0.1-2.0); Eosinophils # 0.4 K/mm3 (0.0-0.4); Eosinophils % 4.1 % (0.1-12.0); Hemoglobin 13.2 g/dL (12.2-16.2); Lymphocytes # 2.8 K/mm3 (0.7-4.5); Mean Corpuscular HGB Conc 32.9 g/dL (31.8-35.4); Mean Corpuscular Hemoglobin 30.7 pg (27.0-31.2); Mean Corpuscular Volume 93.5 fl (81-99); Mean Platelet Volume 9.4 fl (7.4-10.4); Monocytes # 0.5 K/mm3 (0.1-1.0); Monocytes % 5.6 % (1.7-9.3); Neutrophils # 5.6 K/mm3 (1.8-7.8); Neutrophils % 58.9 % (37.0-80.0); Platelet Count 376 K/mm3 (142-424); Red Blood Count 4.28 M/mm3 (4.20-5.40); Red Cell Distribution Width 13.2 % (11.5-17.5); White Blood Count 9.5 K/mm3 (4.8-10.8)
[2022-03-17 14:25] LABS: Direct LDL Cholesterol 109.17 mg/dL (100-129)
[2022-03-17 14:30] LABS: 25-OH Vitamin D, Total 21.4 ng/mL (30-100)
[2022-03-17 14:31] LABS: T4 (Thyroxine) 5.7 ug/dl (5.53-11.0)
[2022-03-17 14:44] LABS: Thyroid Stimulating Hormone 3.75 uIU/mL (0.465-4.68)
[2022-03-19 11:55] LABS: Hepatitis C Antibody >11.0 s/co ratio (0.0-0.9)
== END ==
PROVIDERS: PCP Nurse Practitioner Family; Visit Provider Nurse Practitioner Family
DX: I10 Essential (primary) hypertension (principal); B19.20 Unspecified viral hepatitis C without hepatic coma; Z86.19 Personal history of other infectious and parasitic diseases; E55.9 Vitamin D deficiency, unspecified
CPT/HCPCS: 80053; 80061; 82306; 84436; 84443; 85025; 87380; 87522

== ENCOUNTER 2022-06-25 13:06 | Emergency (ER) | payer BC, SELFPAY ==
[2022-06-25 13:21] VITALS: BP 147/90; PULSE 89; RESP 16; TEMP 36.7; O2SAT 96; BMI 36.5
--- NOTE | 2022-06-25 13:31 | HMH.EDUTC ---
[facility] [place] Clinical Impression: Viral syndrome Disposition: Home, Self-Care Condition on Discharge: Good Instructions: Preventing the Spread of Coronavirus Discharge Instructions, DI for COVID-19 (Suspected or Confirmed ) Additional Instructions: Drink plenty of fluids. Take tylenol or ibuprofen for pain or fever. Take the medications as directed. Follow up with your regular doctor. GO TO THE ER FOR ANY WORSENING SYMPTOMS Quarantine until you know the results of your covid-19 test. Notify your school or workplace of your results and follow their instructions regarding return to work/school. Prescriptions: Ondansetron [Zofran 4mg ODT] 4 mg PO Q8HP PRN #20 tab PRN Reason: Nausea Transmission Status: Pending to [facility] Benzonatate [Benzonatate 100mg cap] 100 mg PO TIDP PRN #30 cap PRN Reason: Cough Transmission Status: Pending to [facility] Referrals: Shravan Polanco MD [Primary Care Provider] - Forms: Work/School Release Time of Disposition: 13:43 Medical Decision Making - Medical Records Medical records reviewed: No: I reviewed the patient's medical records. - Kulwant Inquiry Pt receiving controlled substance: No Vital Signs: 06/25/22 13:21 Temperature 98.0 F Temperature Source Oral Pulse Rate [Left] 89 Respiratory Rate 16 Blood Pressure [Right Arm] 147/90 H Blood Pressure Mean [Right Arm] 109 02 Sat by Pulse Oximetry 96 Orders (Tests/Meds): ORDERS Category Date Time Status Covid-19 Nasal PCR ([facility]) Routine Lab 06/25/22 13:20 [place] [facility] [place] - General Stated complaint: covid exposure, sore throat Time Seen by Provider: 06/25/22 13:31 Mode of Arrival: Ambulatory Source of Information: Patient Limitations: No Limitations Description of Symptoms (Recalled from Triage Doc. by RN): patient comes in for covid test. patient was exposed on 06/20 by her daughter. patient has no symptoms HEENT Symptoms (Recalled from RN notes): No Resp Symptoms (Recalled from RN notes): No Skin Symptoms (Recalled from RN notes): No MS Symptoms (Recalled from RN notes): No Functional Status (Recalled from RN notes): n/a - History of Present Illness Provider Complaint: She states that for the past 2 days she has had chest congestion, sore throat and she has felt bad. She has chills and body aches but she denies documented fever. - Related Data Home Medications Medication Instructions Recorded Confirmed buprenorphine 8 mg-naloxone 2 mg 1 film BUCCAL BID each 06/03/20 03/17/22 sublingual film Previous Rx's Medication Instructions Recorded albuterol sulfate 90 mcg/actuation See Rx Instructions .ROUTE 03/02/21 aerosol inhaler .COMPLEX #18 g quetiapine 200 mg tablet See Rx Instructions .ROUTE 12/13/21 .COMPLEX #90 tab NS famotidine 40 mg tablet See Rx Instructions .ROUTE 03/17/22 .COMPLEX #90 tab prazosin 1 mg capsule 1 mg PO DAILY #90 cap 04/05/22 fluoxetine 20 mg capsule See Rx Instructions .ROUTE 05/13/22 .COMPLEX #90 cap fluoxetine 40 mg capsule See Rx Instructions .ROUTE 05/13/22 .COMPLEX #90 cap buspirone 10 mg tablet See Rx Instructions .ROUTE 06/22/22 .COMPLEX #90 tab Benzonatate [Benzonatate 100mg 100 mg PO TIDP PRN #30 cap 06/25/22 cap] Ondansetron [Zofran 4mg ODT] 4 mg PO Q8HP PRN #20 tab 06/25/22 Allergies Allergy/AdvReac Type Severity Reaction Status Date / Time azithromycin [From ZITHROMAX] Allergy Mild RESP Verified 06/25/22 13:25 Azithromycin Allergy Severe F-[id number]-[id number]/THROAT, Uncoded 03/17/22 10:52 HIVES NUTS (FOOD) Allergy Severe S-SWELLS-OR Uncoded 03/17/22 10:52 AL/THROAT FISH Allergy Mild Anaphylaxis Uncoded 03/17/22 10:52 - Worker's Comp Is this a Worker's Comp case?: No [facility] History - Hepatitis A Screen Attestation statement:: This patient has been screened for Hepatitis A risk factors. I have reviewed the patient's past medical history: Yes Medical Hist
[2022-06-25 13:44] VITALS: BP 147/90; PULSE 89; RESP 16; TEMP 36.7
== END 2022-06-25 13:59 | disposition home or self-care (01) ==
PROVIDERS: Emergency Provider Nurse Practitioner Family; PCP Emergency Medicine
DX: B34.9 Viral infection, unspecified (principal); Z20.822 Contact with and (suspected) exposure to COVID-19
CPT/HCPCS: 99212; C9803; G0463; U0003; U0005

== ENCOUNTER 2022-08-12 19:11 | Emergency (ER) | payer BC, SELFPAY ==
[2022-08-12 19:38] VITALS: BP 131/76; PULSE 84; RESP 18; TEMP 37; O2SAT 98; BMI 37.5
--- NOTE | 2022-08-12 19:56 | EXP.UTC ---
Discharge Plan Disposition Patient Disposition: Home, Self-Care Condition: Good Prescriptions Prescriptions: New amoxicillin 875 mg tablet 875 mg PO BID Qty: 20 0RF No Action famotidine 40 mg tablet See Rx Instructions .ROUTE .COMPLEX Qty: 90 1RF Dose Instruction: Take 1 tablet by mouth once daily Rx Instructions: Take 1 tablet by mouth once daily buprenorphine-naloxone [Suboxone] 8-2 mg film 1 film BUCCAL BID albuterol sulfate 90 mcg/actuation HFA aerosol inhaler See Rx Instructions .ROUTE .COMPLEX Qty: 18 3RF Dose Instruction: INHALE 1 PUFF BY MOUTH EVERY 6 HOURS NEEDED FOR BRONCHOSPASM Rx Instructions: INHALE 1 PUFF BY MOUTH EVERY 6 HOURS NEEDED FOR BRONCHOSPASM quetiapine 200 mg tablet See Rx Instructions .ROUTE .COMPLEX Qty: 90 3RF Dose Instruction: Take 1 tablet by mouth once daily Rx Instructions: Take 1 tablet by mouth once daily prazosin 1 mg capsule 1 mg PO DAILY Qty: 90 1RF fluoxetine 40 mg capsule See Rx Instructions .ROUTE .COMPLEX Qty: 90 1RF Dose Instruction: Take 1 capsule by mouth once daily Rx Instructions: Take 1 capsule by mouth once daily fluoxetine 20 mg capsule See Rx Instructions .ROUTE .COMPLEX Qty: 90 0RF Dose Instruction: TAKE 1 CAPSULE BY MOUTH ONCE DAILY (WITH A 40MG CAPSULE) Rx Instructions: TAKE 1 CAPSULE BY MOUTH ONCE DAILY (WITH A 40MG CAPSULE) buspirone 10 mg tablet See Rx Instructions .ROUTE .COMPLEX Qty: 90 2RF Dose Instruction: TAKE 1 TABLET BY MOUTH THREE TIMES DAILY FOR 30 DAYS Rx Instructions: TAKE 1 TABLET BY MOUTH THREE TIMES DAILY FOR 30 DAYS benzonatate 100 MG capsule 100 mg PO TIDP PRN (Reason: Cough) Qty: 30 0RF ondansetron 4 MG tablet,disintegrating 4 mg PO Q8HP PRN (Reason: Nausea) Qty: 20 0RF Referrals Follow up/Referrals: Shravan Polanco MD [Primary Care Provider] - See instructions Activity Restrictions/Add. Instructions Additional Instructions/Restrictions: *Monitor Temp, Over the counter Motrin or Tylenol as directed/as needed Tylenol every 4 hours and Motrin every 6 hours (as long as your family doctor has told you that you can take it) for fever or pain. and straight to ER if unable to lower temp less than 101.0 after medication given *Warm salt water gargles may help to soothe the throat *Throat Lozenges? *Warm fluids like tea with honey may help to soothe the throat? *Sleep elevated *Humidifier/Vaporizer Your throat swab was sent for culture. Those results are typically sent to your primary care. Be sure to follow up in 2-3 days with your family doctor/primary care physician if no improvement so they can review those result and treat if necessary. If you don?t have a primary care doctor, I recommend you get one but in the mean time, you will have to return to a walk in clinic Follow up IMMEDIATELY for new or worsening symptoms or no Noticeable improvement over the next 48-72 hours. 911 for difficulty breathing or swallowing Clinical Impressions Clinical Impression: URI (upper respiratory infection) Instructions Patient Instructions: Sore Throat Discharge ED Provider: Idania Wesley [facility] [place] General Stated complaint: sore throat Mode of Arrival: Ambulatory Source of Information: Patient Limitations: No Limitations Time Seen by Provider: 08/12/22 19:56 Description of Symptoms (Recalled from Triage Doc. by RN): c/o sore throat x1 week HEENT Symptoms (Recalled from RN notes): Yes (sore throat) Resp Symptoms (Recalled from RN notes): No Skin Symptoms (Recalled from RN notes): No MS Symptoms (Recalled from RN notes): No Functional Status (Recalled from RN notes): n/a History of Present Illness Provider Complaint: Patient states that she has been having sore throat for about a week States that her tonsils are swollen and hurts when she swallows so tonight when she was sti
[2022-08-12 20:06] LABS: UTC Strep Screen (Rapid) Negative (Negative)
[2022-08-12 20:15] VITALS: BP 131/76; PULSE 84; RESP 18; TEMP 37; O2SAT 98
== END 2022-08-12 20:16 | disposition home or self-care (01) ==
PROVIDERS: Emergency Provider Nurse Practitioner; PCP Emergency Medicine
DX: J06.9 Acute upper respiratory infection, unspecified (principal); J02.9 Acute pharyngitis, unspecified; R05.9 Cough, unspecified; F17.210 Nicotine dependence, cigarettes, uncomplicated
CPT/HCPCS: 87880; 99212; G0463

== ENCOUNTER 2023-05-31 17:12 | Emergency (ER) | payer BC, SELFPAY ==
[2023-05-31 17:22] VITALS: BP 173/98; PULSE 88; RESP 20; TEMP 36.8; O2SAT 96; BMI 36.5
--- NOTE | 2023-05-31 17:41 | XR_ITS ---
PROCEDURE INFORMATION: Exam: XR Chest Exam date and time: 05/31/2023 5:59 PM Age: 37 years old Clinical indication: Other: Hypertension TECHNIQUE: Imaging protocol: Radiologic exam of the chest. Views: 1 view. COMPARISON: CR XR CHEST 2V 10/13/2020 10:40 AM FINDINGS: Lungs: Unremarkable. No consolidation. Pleural spaces: Unremarkable. No pleural effusion. No pneumothorax. Heart/Mediastinum: Unremarkable. No cardiomegaly. Bones/joints: Unremarkable. IMPRESSION: No acute pulmonary findings.
--- NOTE | 2023-05-31 17:43 | HMH.EDGENADL ---
Discharge Plan Disposition Patient Disposition: Home, Self-Care Chief Complaint: Recheck/Abnormal Lab/Rx Prescriptions Prescriptions: No Action buprenorphine-naloxone [Suboxone] 8-2 mg film 1 film BUCCAL BID albuterol sulfate 90 mcg/actuation HFA aerosol inhaler See Rx Instructions .ROUTE .COMPLEX Qty: 18 3RF Dose Instruction: INHALE 1 PUFF BY MOUTH EVERY 6 HOURS NEEDED FOR BRONCHOSPASM Rx Instructions: INHALE 1 PUFF BY MOUTH EVERY 6 HOURS NEEDED FOR BRONCHOSPASM quetiapine 200 mg tablet See Rx Instructions .ROUTE .COMPLEX Qty: 90 0RF Dose Instruction: Take 1 tablet by mouth once daily Rx Instructions: Take 1 tablet by mouth once daily prazosin 1 mg capsule See Rx Instructions .ROUTE .COMPLEX Qty: 90 0RF Dose Instruction: Take 1 capsule by mouth once daily Rx Instructions: Take 1 capsule by mouth once daily fluoxetine 40 mg capsule See Rx Instructions .ROUTE .COMPLEX Qty: 90 0RF Dose Instruction: Take 1 capsule by mouth once daily Rx Instructions: Take 1 capsule by mouth once daily fluoxetine 20 mg capsule See Rx Instructions .ROUTE .COMPLEX Qty: 90 0RF Dose Instruction: TAKE 1 CAPSULE BY MOUTH ONCE DAILY (WITH A 40MG CAPSULE) Rx Instructions: TAKE 1 CAPSULE BY MOUTH ONCE DAILY (WITH A 40MG CAPSULE) buspirone 10 mg tablet See Rx Instructions .ROUTE .COMPLEX Qty: 90 0RF Dose Instruction: TAKE 1 TABLET BY MOUTH THREE TIMES DAILY Rx Instructions: TAKE 1 TABLET BY MOUTH THREE TIMES DAILY ondansetron 4 MG tablet,disintegrating 4 mg PO Q8HP PRN (Reason: Nausea) Qty: 20 0RF Referrals Follow up/Referrals: Shravan Polanco MD [Primary Care Provider] - See instructions Clinical Impressions Clinical Impression: Asymptomatic hypertensive urgency Discharge ED Provider: [facility] HPI General Chief complaint: Recheck/Abnormal Lab/Rx Stated complaint: 132/110 BP HR 127 Time Seen by Provider: 05/31/23 17:40 Mode of Arrival: Ambulatory Source of Information: Patient Limitations: No Limitations Description of Symptoms (Recalled from ER Triage Doc. by RN): pt to ed c/o hypertension. pt states she was at the suboxone clinic and was told by staff her blood pressure was high. pt denies any symptoms. History of Present Illness HPI narrative: 37-year-old white female who presents with blood pressure elevation. She has had a cerebral aneurysm about 6 years ago and goes to see her physician once a year for checkup. But has not been for 2 years and had a blood pressure check today and it was elevated on 2 separate occasions presenting to the emergency department for treatment. She does not take anything for her blood pressure and suffers from anxiety and depression. Her medical allergies include azithromycin Related Data Home Medications Medication Instructions Recorded Confirmed buprenorphine 8 mg-naloxone 2 mg 1 film buccal BID addiction hx 06/03/20 03/30/23 sublingual film (Suboxone) Previous Rx's Medication Instructions Recorded albuterol sulfate 90 mcg/actuation See Rx Instructions .Route 03/02/21 aerosol inhaler .COMPLEX #18 grams ondansetron 4 mg disintegrating 4 mg PO Q8HP PRN Nausea #20 tabs 06/25/22 tablet quetiapine 200 mg tablet See Rx Instructions .Route 03/23/23 .COMPLEX #90 tabs prazosin 1 mg capsule See Rx Instructions .Route 04/28/23 .COMPLEX #90 caps fluoxetine 20 mg capsule See Rx Instructions .Route 05/12/23 .COMPLEX #90 caps fluoxetine 40 mg capsule See Rx Instructions .Route 05/12/23 .COMPLEX #90 caps buspirone 10 mg tablet See Rx Instructions .Route 05/24/23 .COMPLEX #90 tabs Allergies Allergy/AdvReac Type Severity Reaction Status Date / Time azithromycin [From ZITHROMAX] Allergy Mild RESP Verified 03/30/23 10:48 Azithromycin Allergy Severe Z-[id number]/THROAT, Uncoded 03/17/22 10:52 HIVES NUTS (FOOD) Allergy Severe
[2023-05-31 18:07] VITALS: BP 158/89; PULSE 89; O2SAT 95
[2023-05-31 18:11] LABS: Microscopic, Urine URINE MICROSCOPIC (MICROSCOPIC)
[2023-05-31 18:27] LABS: Appearance,Urine CLEAR (Clear); Bilirubin,Urine Negative (Negative); Blood, Urine TRACE-I (Negative); Color,Urine YELLOW (Yellow); Glucose,Urine (UA) Negative (Negative); Ketones,Urine Negative (Negative); Leukocyte Esterase,Urine TRACE (Negative); Nitrate,Urine Negative (Negative); PH,Urine 6.5 (5.0-8.5); Protein,Urine Negative (Negative); Urobilinogen,Urine 0.2 EU/dl (0.2)
[2023-05-31 18:32] LABS: RBC,Urine Occasional #/hpf (0-3); Squamous Epithelial Cell,Urine Occasional #/hpf (0-5); WBC,Urine Occasional #/hpf (0-3)
[2023-05-31 18:38] LABS: Amphetamine/Metha Screen,Urine Negative ng/ml (<1000); Benzodiazepines Screen,Urine Negative ng/ml (<200)
[2023-05-31 18:39] LABS: Barbiturates Screen,Urine Negative ng/ml (<200); Cannabinoid Screen,Urine Positive ng/ml (<50)
[2023-05-31 18:40] LABS: Cocaine Screen,Urine Negative ng/ml (<300)
[2023-05-31 18:41] LABS: Methadone Screen,Urine Negative ng/ml (<300)
[2023-05-31 18:42] LABS: Phencyclidine Screen,Urine Negative ng/ml (<25)
[2023-05-31 19:03] LABS: Opiate Screen,Urine Negative ng/ml (<300)
[2023-05-31 19:12] LABS: Basophils % 0.3 % (0.1-2.0); Eosinophils # 0.2 K/mm3 (0.0-0.4); Eosinophils % 1.7 % (0.1-12.0); Hematocrit 49.3 % (37.0-47.0); Hemoglobin 15.7 g/dL (12.2-16.2); Lymphocytes # 3.5 K/mm3 (0.7-4.5); Lymphocytes % 29.9 % (10-50); Mean Corpuscular HGB Conc 31.8 g/dL (31.8-35.4); Mean Corpuscular Hemoglobin 30.6 pg (27.0-31.2); Mean Corpuscular Volume 96.1 fl (81-99); Mean Platelet Volume 8.3 fl (7.4-10.4); Monocytes # 0.5 K/mm3 (0.1-1.0); Monocytes % 4.7 % (1.7-9.3); Neutrophils # 7.3 K/mm3 (1.8-7.8); Neutrophils % 63.4 % (37.0-80.0); Platelet Count 320 K/mm3 (142-424); Red Blood Count 5.13 M/mm3 (4.20-5.40); Red Cell Distribution Width 14.5 % (11.5-17.5); White Blood Count 11.5 K/mm3 (4.8-10.8)
[2023-05-31 19:23] LABS: HCG Qualitative, Serum Negative (Negative)
[2023-05-31 19:25] LABS: Alanine Aminotransferase 80 U/L (12-78); Albumin Level 4.9 g/dl (3.5-5.0); Albumin/Globulin Ratio 1.6 (1.1-1.8); Alkaline Phosphatase 124 U/L (38-126); Anion Gap 16.7 mEq/L (5-15); Aspartate Amino Transferase 98 U/L (14-36); Bilirubin,Total 0.4 mg/dl (0.2-1.3); Blood Urea Nitrogen 9 mg/dl (7-17); Carbon Dioxide 23 mmol/L (22.0-30.0); Chloride 106 mmol/L (98-107); Creatinine Clearance Estimated 159 mL/min (50-200); Estimated Glomerular Filt Rate 93 ml/min (>60); GFR (African American) 113 ML/MIN (>60); Glucose 87 mg/dl (74-100); Potassium 3.7 mmoL/L (3.5-5.1); Sodium 142 mmol/L (136-145); Total Protein,Serum 7.9 g/dl (6.3-8.2)
[2023-05-31 20:06] VITALS: BP 141/88; PULSE 81; RESP 16; TEMP 36.6
== END 2023-05-31 20:08 | disposition home or self-care (01) ==
PROVIDERS: Emergency Provider Emergency Medicine; PCP Emergency Medicine
DX: I16.0 Hypertensive urgency (principal); I67.1 Cerebral aneurysm, nonruptured; F41.9 Anxiety disorder, unspecified; F17.210 Nicotine dependence, cigarettes, uncomplicated; F32.A Depression, unspecified
CPT/HCPCS: 71045; 80053; 80305; 81001; 84703; 85025; 99284; 99285

== ENCOUNTER → 2023-06-15 07:56 | Outpatient (CLI) | payer BC, SELFPAY ==
--- NOTE | 2023-06-15 07:58 | CA_ITS ---
FINAL REPORT CLINICAL HISTORY: HTN,HLD,SMOKER FINDINGS: Aorta velocity: 185 cm/sec Right kidney: 9.9 cm. No evidence of hydronephrosis or mass. Right intrarenal RI: .54 Right renal artery velocity: 234 cm/sec. Right RAR (Renal artery-Aortic Ratio): 1.3 Left Kidney: 11.9 cm. No evidence of hydronephrosis or mass. Left intrarenal RI: .52 Left renal artery velocity: 268 cm/sec. Left RAR (Renal Artery-Aortic Ratio): 1.5 IMPRESSION: No evidence of significant renal artery stenosis. CT angiogram or postcontrast MR angiogram would be more sensitive for evaluation of possible renal artery stenosis. Reviewed, Interpreted and Dictated by Kathy Mojica MD Transcribed by Vivian Correia Authenticated and . [facility]
== END ==
PROVIDERS: PCP Emergency Medicine; Visit Provider Emergency Medicine
DX: I10 Essential (primary) hypertension (principal); I16.0 Hypertensive urgency
CPT/HCPCS: 93976

== ENCOUNTER 2024-06-19 10:01 | Outpatient (CLI) | payer BC, SELFPAY ==
[2024-06-20 13:29] LABS: HIV (1&2) Antibody Rapid NONREACTIVE (NONREACTIVE)
[2024-06-24 18:10] LABS: HBsAg Screen Negative (Negative); HCV Ab Reactive (Non Reactive); Hep A Ab, IGM Negative (Negative); Hep B Core Ab, IgM Negative (Negative)
== END 2024-06-19 23:59 | disposition home or self-care (01) ==
LOC: LAB.DROPOF 06-20 10:01
PROVIDERS: PCP Nurse Practitioner Family; Visit Provider Nurse Practitioner Family
DX: Z72.51 High risk heterosexual behavior (principal)
CPT/HCPCS: 86803; 86703; 80074

== ENCOUNTER 2024-06-25 15:02 | Outpatient (CLI) | payer BC, SELFPAY ==
--- OUTSIDE RECORDS SUMMARY | 2024-06-25 15:04 | XMS_ITS | Clinical Summary ---
Author Organization [facility] Address [address] [place] [address] Phone Care Team Providers Care Talent Director Name Role Phone Unavailable Unavailable Conditions or Problems No information available. Medications No information available. Medications Administered No information available. Allergies, Adverse Reactions, Alerts No information available. Results No information available. Plan of Care No information available. Procedures No information available. Vital Signs No information available. Immunizations No information available. Advance Directives No information available.
--- NOTE | 2024-06-25 15:11 | CA_ITS ---
APPROVED REPORT EXAM: Comprehensive 2D, Doppler, and color-flow Echocardiogram Extension Work Director: SUSY Regan, RVS Ht: 5 ft 3 in Wt: 216lbs BSA: 2.00 BP: 162/110 mmHg Indications: cp, sMOKER, htn, fAMILY HX-hd Echo Enhancing Agent Comments: TDS: DUE TO PATIENT FACTORS 2D Dimensions IVSd 1.21 cm LVEF (Visual) 54.70 % PWd 0.90 cm LA Volume 54.10 mL LVDd 4.07 cm LA Volume Index 26.40 mL/m2 (M/F) 16-34 LVDs 2.93 cm Left Atrium 3.12 cm M-Mode Dimensions RVDd 1.96 cm (0.9-2.6) LA Diam 4.02 cm (1.9-4.0) LVDd 4.43 cm (3.5-5.7) LVDs 2.79 cm (3.5-5.7) IVSd 1.25 cm (0.6-1.1) PWd 1.14 cm (0.6-1.1) EF (Teich) 67.10% EPSs 0.43 cm FS 37.00% EDV (Teich) 89.10 mL TAPSE 2.13 (<1.7) ESV (Teich) 29.30 mL LV Diastology E Decel Time 187 (160-240 msec) E/A Ratio 1.05 MED A' 9.70 cm/s LAT A' 13.70 cm/s Aortic Valve SONU Index 0.80 cm2/m2 AoV Peak Kasi. 156.0 (50-130 cm/s) AO Peak GR. 9.80 mmHg AO Mean GR. 4.90 (<5 mmHg) AO VTI 32.0 (18-25 cm) SONU (VTI) 1.64 (2.5-4.5 cm2) Mitral Valve MV A Velocity 88.0 (40-130 cm/s) E/A Ratio 1.05 MV Mean Gr. 2.30 (<2mmHg) Pulmonary Valve PV Peak Velocity 99.0 (50-150 cm/s) Left Ventricle The left ventricle is normal size. The left ventricular systolic function is normal. The left ventricular ejection fraction is within the normal range. There is normal left ventricular wall thickness. There is normal LV segmental wall motion. The left ventricular diastolic function is normal. LVEF is 60%. Right Ventricle The right ventricle is normal size. The right ventricular systolic function is normal. Atria The left atrium size is normal. The right atrium size is normal. There is no Doppler evidence of interatrial shunt. Aortic Valve The aortic valve opens well. There is no aortic valvular stenosis. Trace aortic regurgitation. Mitral Valve The mitral valve is normal in structure. No evidence of mitral valve stenosis. Trace mitral regurgitation. Tricuspid Valve The tricuspid valve leaflets are thin and pliable. Trace tricuspid regurgitation. There is insufficient TR jet to estimate RVSP. Pulmonic Valve The pulmonary valve is normal in structure. Trace pulmonic regurgitation. Great Vessels The aortic root is normal in size. The ascending aorta is not well-visualized. IVC is normal in size and collapses >50% with inspiration. Pericardium There is no pericardial effusion. Other Information Study Quality: Fair Conclusion Normal biventricular systolic function. No significant valvular stenosis or regurgitation. Electronically signed by : Lois Zhu MD 06/25/2024 23:56:19
== END 2024-06-25 23:59 | disposition home or self-care (01) ==
LOC: RT 15:02
PROVIDERS: PCP Nurse Practitioner Family; Visit Provider Nurse Practitioner Family
DX: R06.02 Shortness of breath (principal); R07.9 Chest pain, unspecified
CPT/HCPCS: 93306

== ENCOUNTER 2024-10-01 11:50 | Emergency (ER) | payer BC, SELFPAY ==
--- NOTE | 2024-10-01 11:44 | ECG_ITS ---
APPROVED REPORT Exam: Resting ECG HR:115 bpm ECG Measurements Heart Rate 115 AXES MN 163 P 66 QRSd 99 QRS 77 QT 342 T 50 QTc 410 Conclusion SINUS TACHYCARDIA Electronically signed by : TIFFANI REEVES, 10/01/2024 15:27:43
[2024-10-01 11:50] VITALS: BP 143/101; PULSE 118; RESP 13; TEMP 37; O2SAT 96; BMI 36.6
[2024-10-01 12:15] VITALS: PULSE 102; RESP 14; O2SAT 93
--- NOTE | 2024-10-01 12:18 | PC.NURSE ---
seizure pads placed on pt upon arrival from EMS
[2024-10-01 12:30] VITALS: BP 123/81; PULSE 103; RESP 14; O2SAT 93
--- NOTE | 2024-10-01 12:48 | CT_ITS ---
PROCEDURE INFORMATION: Exam: CT Head Without Contrast Exam date and time: 10/01/2024 1:35 PM Age: 39 years old Clinical indication: Other: Seizure; Additional info: New onset seizure, h/o brain aneurysm TECHNIQUE: Imaging protocol: Computed tomography of the head without contrast. Radiation optimization: All CT scans at this facility use at least one of these dose optimization techniques: automated exposure control; mA and/or kV adjustment per patient size (includes targeted exams where dose is matched to clinical indication); or iterative reconstruction. COMPARISON: CT HEAD/BRAIN WO CON 03/23/2021 5:39 PM FINDINGS: Brain: A previously demonstrated hyperdense left frontal parenchymal hematoma is no longer present. There is now regional encephalomalacia at this location. This is deep to a craniotomy. No acute hemorrhage identified. No visible evolving territorial infarct. Cerebral ventricles: Mild ex vacuo enlargement of the anterior body of the left lateral ventricle since prior. Paranasal sinuses: Visualized sinuses are unremarkable. No fluid levels. Mastoid air cells: Visualized mastoid air cells are well aerated. Bones: Prior left frontoparietal convexity craniotomy. No acute calvarial fracture seen. Soft tissues: Unremarkable. IMPRESSION: No acute intracranial abnormality seen.
--- NOTE | 2024-10-01 12:48 | CT_ITS ---
PROCEDURE INFORMATION: Exam: CTA Neck With Contrast Exam date and time: 10/01/2024 1:37 PM Age: 39 years old Clinical indication: Other: Seizure; Additional info: New onset seizure, h/o brain aneurysm TECHNIQUE: Imaging protocol: Computed tomographic angiography of the neck with contrast. Exam focused on the cervical segments of the vasculature. 3D rendering (Not supervised by radiologist): MIP and/or 3D reconstructed images were created by the technologist. Radiation optimization: All CT scans at this facility use at least one of these dose optimization techniques: automated exposure control; mA and/or kV adjustment per patient size (includes targeted exams where dose is matched to clinical indication); or iterative reconstruction. Contrast material: ISOVUE 370; Contrast volume: 80 ml; Contrast route: INTRAVENOUS (IV); COMPARISON: CT ANGIO HEAD 10/01/2024 1:37 PM FINDINGS: Right common carotid artery: The right carotid bulb demonstrates mild luminal irregularity probably reflecting atherosclerosis. No stenosis. Right internal carotid artery: No stenosis of the extracranial segment. No dissection or occlusion. Right external carotid artery: No occlusion or stenosis of the origin. Left common carotid artery: No stenosis. No dissection or occlusion. Left internal carotid artery: The proximal left ICA demonstrates soft plaque with broad-based ulceration posteriorly, for example seen on sagittal MIP image 76 of series 6. Left external carotid artery: No occlusion or stenosis of the origin. Right vertebral artery: The right vertebral artery is dominant, patent. Left vertebral artery: The left vertebral artery is developmentally hypoplastic, patent. Soft tissues: Normal. No significant soft tissue swelling. Bones/joints: No acute fracture. Lungs: A calcified granuloma in the right upper lobe. IMPRESSION: 1. No acute vascular findings in the neck. 2. 0% right ICA stenosis. 3. 0% left ICA stenosis. The proximal left ICA does demonstrates soft plaque with broad-based ulceration, atypical for age. 4. The vertebral arteries are patent without stenoses. REFERENCES: NASCET CRITERIA. The degree of stenosis in the cervical segment of the internal carotid artery is based on NASCET criteria. Normal is no stenosis. Mild is less than 50% stenosis. Moderate is 50-69% stenosis. Severe is 70% to 99% stenosis. Total occlusion is no detectable patent lumen.
--- NOTE | 2024-10-01 12:48 | CT_ITS ---
PROCEDURE INFORMATION: Exam: CTA Head With Contrast, Arteriography Exam date and time: 10/01/2024 1:37 PM Age: 39 years old Clinical indication: Other: Seizure; Additional info: New onset seizure, h/o brain aneurysm TECHNIQUE: Imaging protocol: Computed tomographic angiography of the head with contrast. Exam focused on the arteries. 3D rendering (Not supervised by radiologist): MIP and/or 3D reconstructed images were created by the technologist. Radiation optimization: All CT scans at this facility use at least one of these dose optimization techniques: automated exposure control; mA and/or kV adjustment per patient size (includes targeted exams where dose is matched to clinical indication); or iterative reconstruction. Contrast material: ISOVUE 370; Contrast volume: 80 ml; Contrast route: INTRAVENOUS (IV); COMPARISON: CT HEAD/BRAIN WO CON 10/01/2024 1:35 PM No prior angiogram exams are available for direct comparison. No prior reports are available. FINDINGS: ANTERIOR CIRCULATION: Right internal carotid artery: Intracranial segment is patent with no significant stenosis. No large aneurysms. A subtle 1-2 mm subtle outpouching is suggested from the posterior cavernous right ICA on image 372 of series 7, could be related to atherosclerosis versus a very tiny cavernous aneurysm. Right middle cerebral artery: No occlusion or significant stenosis. No aneurysm. Right anterior cerebral artery: No occlusion or significant stenosis. No aneurysm. Anterior communicating artery: Slight prominence of the right aspect of the anterior communicating artery probably reflecting a fenestration. No significant aneurysm. Left internal carotid artery: The left ICA demonstrates trace calcified atherosclerosis not contributing to significant stenosis. Left middle cerebral artery: No occlusion or significant stenosis. No aneurysm. Left anterior cerebral artery: No occlusion or significant stenosis. No aneurysm. POSTERIOR CIRCULATION: Right vertebral artery: The right vertebral artery is dominant, patent. No aneurysm. Left vertebral artery: The left vertebral artery is developmentally hypoplastic, in particular following a low origin of the left PICA, a normal variant. No aneurysms. Basilar artery: No occlusion or significant stenosis. No aneurysm. Right posterior cerebral artery: Patent. origin of the right posterior cerebral artery. No aneurysm. Left posterior cerebral artery: Patent. origin of the left posterior cerebral artery. No aneurysm. Brain: An area of left frontal lobe encephalomalacia is again demonstrated. No definite mass, mass effect, or midline shift. Cerebral ventricles: Stable. Bones/joints: Unremarkable. No acute fracture. Soft tissues: Unremarkable. IMPRESSION: No proximal intracranial arterial occlusion or high-grade stenosis seen.
[2024-10-01 12:50] LABS: Basophils # 0.1 K/mm3 (0-0.2); Basophils % 1.2 % (0.1-2.0); Eosinophils # 0.3 K/mm3 (0.0-0.4); Eosinophils % 2.5 % (0.1-12.0); Hematocrit 55.7 % (37.0-47.0); Hemoglobin 17.9 g/dL (12.2-16.2); Lymphocytes # 5.7 K/mm3 (0.7-4.5); Lymphocytes % 55.3 % (10-50); Mean Corpuscular HGB Conc 32.1 g/dL (31.8-35.4); Mean Corpuscular Hemoglobin 35.2 pg (27.0-31.2); Mean Corpuscular Volume 109.6 fl (81-99); Monocytes # 0.6 K/mm3 (0.1-1.0); Monocytes % 5.6 % (1.7-9.3); Neutrophils # 3.6 K/mm3 (1.8-7.8); Neutrophils % 35.3 % (37.0-80.0); Platelet Count 230 K/mm3 (142-424); Red Blood Count 5.08 M/mm3 (4.20-5.40); Red Cell Distribution Width 14.3 % (11.5-17.5); White Blood Count 10.2 K/mm3 (4.8-10.8)
[2024-10-01 12:58] LABS: MANUAL DIFFERENTIAL MANUAL DIFFERENTIAL (MANUAL DIFF)
--- NOTE | 2024-10-01 12:58 | PC.NURSE ---
pt ambulatory to restroom without complication
[2024-10-01 13:04] LABS: Albumin Level 5.1 g/dl (3.5-5.0); Chloride 101 mmol/L (98-107); Potassium 3.8 mmoL/L (3.5-5.1); Sodium 136 mmol/L (136-145)
--- NOTE | 2024-10-01 13:05 | PC.NURSE ---
UA sent to lab
[2024-10-01 13:06] LABS: HCG Qualitative, Serum Negative (Negative)
[2024-10-01 13:07] LABS: Alanine Aminotransferase 135 U/L (12-78); Albumin/Globulin Ratio 1.5 (1.1-1.8); Alkaline Phosphatase 195 U/L (38-126); Anion Gap 29.8 mEq/L (5-15); Aspartate Amino Transferase 156 U/L (14-36); Bilirubin,Total 0.8 mg/dl (0.2-1.3); Blood Urea Nitrogen 13 mg/dl (7-17); Calcium 8.9 mg/dl (8.4-10.2); Creatinine Clearance Estimated 106 mL/min (50-200); Estimated Glomerular Filt Rate 61 ml/min (>60); GFR (African American) 74 ML/MIN (>60); Globulin 3.3 g/dL (1.3-3.2); Glucose 154 mg/dl (74-100); Total Protein,Serum 8.4 g/dl (6.3-8.2)
[2024-10-01 13:08] LABS: Ethyl Alcohol < 10 mg/dl (0-10); Magnesium 1.9 mg/dl (1.6-2.3)
[2024-10-01 13:09] LABS: Carbon Dioxide 9 mmol/L (22.0-30.0)
[2024-10-01 13:12] LABS: Microscopic, Urine URINE MICROSCOPIC (MICROSCOPIC)
[2024-10-01 13:14] LABS: Appearance,Urine CLEAR (Clear); Bilirubin,Urine Negative (Negative); Blood, Urine TRACE-I (Negative); Color,Urine YELLOW (Yellow); Glucose,Urine (UA) Negative (Negative); Ketones,Urine Negative (Negative); Leukocyte Esterase,Urine Negative (Negative); Nitrate,Urine Negative (Negative); Protein,Urine TRACE (Negative)
[2024-10-01 13:15] VITALS: BP 123/81; PULSE 78; RESP 15
[2024-10-01 13:26] LABS: Benzodiazepines Screen,Urine Negative ng/ml (<200)
[2024-10-01 13:27] LABS: Amphetamine/Metha Screen,Urine Negative ng/ml (<1000); Barbiturates Screen,Urine Negative ng/ml (<200)
[2024-10-01 13:29] LABS: Cannabinoid Screen,Urine Positive ng/ml (<50); Methadone Screen,Urine Negative ng/ml (<300)
[2024-10-01 13:30] LABS: Cocaine Screen,Urine Negative ng/ml (<300); Phencyclidine Screen,Urine Negative ng/ml (<25)
[2024-10-01 13:31] LABS: Opiate Screen,Urine Negative ng/ml (<300)
[2024-10-01 13:33] LABS: Acetone, Serum (Rapid) None Detected (None Detect)
--- NOTE | 2024-10-01 13:33 | PC.NURSE ---
Pt out of room with Rad for CT
--- NOTE | 2024-10-01 13:33 | PC.NURSE ---
Micaela, RT aware of VBG being sent to lab
[2024-10-01] MEDS: IOPAMIDOL-370 (76%);100ML BOTTLE 80 ML IV (13:37)
[2024-10-01] MEDS: SODIUM CHLORIDE 0.9% 50ML BAG 50 ML IV (13:37)
[2024-10-01] MEDS: SODIUM CHLORIDE 0.9% 10ML SYR (RAD ONLY) 10 ML IV (13:37)
[2024-10-01 13:38] LABS: Lymphocytes % 50 % (10-50); Monocytes % 4 % (2-9); Neutrophils % 46 % (42-76); Total Cells Counted 100
[2024-10-01 13:39] LABS: Macrocytosis 2+; Platelet Estimate Normal
[2024-10-01 13:40] LABS: Acetaminophen < 10 ug/ml (10-30); Salicylate < 1.0 mg/dL (2.0-20.0)
[2024-10-01 13:41] LABS: VBG Base Excess -1.9 mmol/L (-2.4-2.3); VBG HCO3 22.7 mmol/L (23-30); VBG PH 7.42 mmol/L (7.31-7.41); VBG PO2 68.5 mmol/L (28-40); VBG Total CO2 23.8 mmol/L (23-27)
--- NOTE | 2024-10-01 13:41 | PC.NURSE ---
Pt back in room from CT
[2024-10-01 13:45] LABS: Lactate Venous 2.2 mmol/L (0.4-2.0)
--- NOTE | 2024-10-01 13:47 | PC.NURSE ---
lactic sent to lab
[2024-10-01] MEDS: 0.9 % SODIUM CHLORIDE 1000ML 1,000 ML 999 ML IV (13:53)
[2024-10-01 13:56] LABS: HIV (1&2) Antibody Rapid NONREACTIVE (NONREACTIVE)
--- NOTE | 2024-10-01 14:02 | ED_ITS ---
Discharge Plan Disposition Patient Disposition: Home, Self-Care Condition: Good Prescriptions Prescriptions: New levetiracetam [Keppra] 500 mg tablet 500 mg PO BID Qty: 60 2RF No Action buspirone 10 mg tablet See Rx Instructions .ROUTE .COMPLEX Qty: 90 1RF Dose Instruction: TAKE 1 TABLET BY MOUTH THREE TIMES DAILY Rx Instructions: TAKE 1 TABLET BY MOUTH THREE TIMES DAILY lisinopril 20 mg tablet See Rx Instructions .ROUTE .COMPLEX Qty: 90 1RF Dose Instruction: Take 1 tablet by mouth once daily Rx Instructions: Take 1 tablet by mouth once daily prazosin 1 mg capsule See Rx Instructions .ROUTE .COMPLEX Qty: 90 1RF Dose Instruction: Take 1 capsule by mouth once daily Rx Instructions: Take 1 capsule by mouth once daily quetiapine 200 mg tablet See Rx Instructions .ROUTE .COMPLEX Qty: 90 1RF Dose Instruction: Take 1 tablet by mouth once daily Rx Instructions: Take 1 tablet by mouth once daily buprenorphine-naloxone [Suboxone] 8-2 mg film 1 film BUCCAL BID albuterol sulfate 90 mcg/actuation HFA aerosol inhaler See Rx Instructions .ROUTE .COMPLEX Qty: 18 3RF Dose Instruction: INHALE 1 PUFF BY MOUTH EVERY 6 HOURS NEEDED FOR BRONCHOSPASM Rx Instructions: INHALE 1 PUFF BY MOUTH EVERY 6 HOURS NEEDED FOR BRONCHOSPASM famotidine 40 mg tablet See Rx Instructions .ROUTE .COMPLEX Qty: 90 2RF Dose Instruction: Take 1 tablet by mouth once daily Rx Instructions: Take 1 tablet by mouth once daily fluoxetine 20 mg capsule See Rx Instructions .ROUTE .COMPLEX Qty: 90 3RF Dose Instruction: TAKE 1 CAPSULE BY MOUTH ONCE DAILY (WITH A 40MG CAPSULE) Rx Instructions: TAKE 1 CAPSULE BY MOUTH ONCE DAILY (WITH A 40MG CAPSULE) fluoxetine 40 mg capsule See Rx Instructions .ROUTE .COMPLEX Qty: 90 3RF Dose Instruction: Take 1 capsule by mouth once daily Rx Instructions: Take 1 capsule by mouth once daily Referrals Follow up/Referrals: Joey Colon DO [Primary Care Provider] - See instructions Activity Restrictions/Add. Instructions Additional Instructions/Restrictions: You were evaluated in the emergency department today. At this time, we are starting you on a medication to prevent seizures called Keppra. 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 Try not to miss any doses, as this can increase risk of seizure. Follow-up closely with your primary care provider over the next 48 hours for reassessment. I also recommend close follow-up with neurology, and your primary care provider can help refer you to them as an outpatient. Return to the emergency department right away for new or worsening symptoms. Take your medicines exactly as prescribed. Call your doctor or nurse advice line if you think you are having a problem with your medicine. Do not drive a car, operate machinery, swim, climb ladders, or do any other activity that could be dangerous to you or others until your primary care doctor or neurologist says it is safe to do so. Be sure that anyone treating you for any health problem knows that you have had a seizure and what medicines you are taking for it. Identify and avoid things that may make you more likely to have a seizure, such as lack of sleep, alcohol or drug use, stress, or not eating. If possible, take a shower instead of a bath. Having a seizure while in a bath can increase the risk of drowning. Clinical Impressions Clinical Impression: First time seizure, Transaminitis Stand Alone Forms Stand Alone Forms: Work/School Release Instructions Patient Instructions: DI for Seizure Disorder -- Adult, DI for Seizure (Not Epilepsy/Seizure Disorder) Print Language Print Language: Mexican Discharge ED Provider: Xiomara Bonilla General Adult HPI General Chief complaint: Seizure Stated complaint: Seizure Time Seen by Provider: 10/01/24 12:24 Mode of Arrival: EMS Source of Information: Patient and EMS Limitations: No Limitations Description of Symptoms (Recalled from ER Triage Doc. by RN): pt presents to ED for seizure. pt reports no hxof serizure. pt reports last thing she remembers is feeling like she was going to pass out at work. and then she remembers EMS being on scene. History of Present Illness HPI narrative: This patient is a 39-year-old female with a history of obesity, prior brain aneurysm status post surgery, chronic Suboxone dependence presenting to the emergency department for evaluation with concern for seizure. Patient denies ever having a seizure in the past. She notes that she was at work when she felt she is going to pass out. She next members waking up in an ambulance. She is not sure what happened between then. According to the EMS, they were called to the scene for patient who is having a generalized tonic-clonic seizure. Seizure had aborted by the time they got there and she was postictal. Patient states that she has some soreness in her throat but otherwise is fine. She denies anything out of the ordinary this morning and states that she has been in her usual state of health. She does not drink alcohol and denies any recent changes in medications or substances. She does occasionally use marijuana. She denies any fevers, chills, headache, visual disturbance, numbness, tingling, weakness, chest pain, shortness of breath, abdominal pain, vomiting, changes bowel movements, changes in appetite, or other concerns. No recent trauma. Related Data Home Medications ?Medication ?Instructions ?Recorded ?Confirmed buprenorphine 8 mg-naloxone 2 mg 1 film buccal BID addiction hx 06/03/20 06/19/24 sublingual film (Suboxone) Previous Rx's ?Medication ?Instructions ?Recorded albuterol sulfate 90 mcg/actuation See Rx Instructions .Route 03/02/21 aerosol inhaler .COMPLEX #18 grams buspirone 10 mg tablet See Rx Instructions .Route 06/19/24 .COMPLEX #90 tabs lisinopril 20 mg tablet See Rx Instructions .Route 06/19/24 .COMPLEX #90 tabs prazosin 1 mg capsule See Rx Instructions .Route 06/19/24 .COMPLEX #90 caps quetiapine 200 mg tablet See Rx Instructions .Route 06/19/24 .COMPLEX #90 tabs famotidine 40 mg tablet See Rx Instructions .Route 07/25/24 .COMPLEX #90 tabs fluoxetine 20 mg capsule See Rx Instructions .Route 08/28/24 .COMPLEX #90 caps fluoxetine 40 mg capsule See Rx Instructions .Route 08/28/24 .COMPLEX #90 caps levetiracetam 500 mg tablet 500 mg PO BID #60 tabs 10/01/24 (Keppra) Allergies Allergy/AdvReac Type Severity Reaction Status Date / Time azithromycin [From ZITHROMAX] Allergy Mild RESP Verified 06/19/24 09:45 Azithromycin Allergy Severe C-WIHGFS-JNSV/THROAT, Uncoded 06/22/23 10:07 HIVES NUTS (FOOD) Allergy Severe S-SWELLS-OR Uncoded 06/22/23 10:07 AL/THROAT FISH Allergy Mild Anaphylaxis Uncoded 06/22/23 10:07 [facility] Disclaimer: The information contained in this section may have been updated after the patient was seen, as this information can be updated by other users. Medical History URI (upper respiratory infection) Viral syndrome BMI 35.0-35.9,adult Vomiting and diarrhea Strep throat Anxiety Allergic reaction Insomnia Depression Surgical History H/O brain surgery History of endometrial ablation Family History Other Hypertension Social History Smoking Status: Current every day smoker tobacco type: cigarettes packs per day: 1 second hand exposure: No alcohol intake: never substance use type: marijuana current occupational status: employed Travel in the last 8 weeks: None household members: family and children housing: house Other Medical History Have you received the Flu Vaccine for this season: No Have you received the Pneumonia Vaccine: No ROS Obtained: Yes All systems reviewed & no additional complaints except as documented Physical Exam General General appearance: alert and in no apparent distress Head Head exam: atraumatic and normocephalic Eye Eye exam: Present normal appearance, PERRL and EOMI ENT ENT exam: Present normal exam, normal oropharynx, mucous membranes moist and normal external ear exam Neck Neck exam: Present normal inspection, full ROM and trachea midline; Absent tenderness Chest Chest inspection: Present normal inspection and symmetric chest wall rise; Absent tenderness Respiratory Respiratory exam: Present normal lung sounds bilaterally; Absent respiratory distress, wheezes, stridor or accessory muscle use Cardiovascular Cardiovascular exam: Present normal rhythm and tachycardia Abdominal Exam Abdominal exam: Present soft; Absent distention, tenderness or guarding Extremities Exam Extremities exam: Present normal inspection, full ROM and normal capillary refill; Absent tenderness or edema Back Exam Back exam: Present normal inspection and full ROM; Absent tenderness Neurological Exam Neurological exam: Present alert, oriented X3, CN II-XII intact and normal gait; Absent motor sensory deficit Psychiatric Psychiatric exam: Present normal affect and normal mood Skin Skin exam: Present warm and dry Medical Decision Making Medical Records Medical records reviewed: Yes I reviewed the patient's medical records. Screening: Per USPSTF and CDC recommendations, given the prevalence of disease in our region, it is our hospital?s policy to screen for HIV and viral Hepatitis for all patients aged 18 and over and those with ongoing risk factors. Kulwant Inquiry Pt receiving controlled substance: No Vital Signs: 10/01/24 11:50 10/01/24 12:15 10/01/24 12:30 Temperature 98.6 F Temperature Source Oral Pulse Rate 102 H 103 H Pulse Rate [Left Radial] 118 H Respiratory Rate 13 14 14 Blood Pressure 123/81 Blood Pressure [Right Arm] 143/101 H Blood Pressure Mean [Right Arm] 115 02 Sat by Pulse Oximetry 96 93 L 93 L Oxygen Delivery Method Room Air 10/01/24 13:15 10/01/24 15:08 Temperature 98.2 F Temperature Source Pulse Rate 78 80 Pulse Rate [Left Radial] Respiratory Rate 15 18 Blood Pressure 123/81 121/86 Blood Pressure [Right Arm] Blood Pressure Mean [Right Arm] 02 Sat by Pulse Oximetry Oxygen Delivery Method Lab Data Lab results reviewed: Yes I reviewed the patient's lab results. Lab Results 10/01/24 11:38: WBC 10.2, RBC 5.08, Hgb 17.9 H, Hct 55.7 H, MCV 109.6 H, MCH 35.2 H, MCHC 32.1, RDW 14.3, Plt Count 230, MPV 9.0, Neut % (Auto) 35.3 L, Lymph % (Auto) 55.3 H, [place] % (Auto) 5.6, Eos % (Auto) 2.5, Baso % (Auto) 1.2, Neut # (Auto) 3.6, Lymph # (Auto) 5.7 H, [place] # (Auto) 0.6, Eos # (Auto) 0.3, Baso # (Auto) 0.1, Total Counted 100, Neutrophils % (Manual) 46, Lymphocytes % (Manual) 50, Monocytes % (Manual) 4, Platelet Estimate Normal, Macrocytosis 2+, Sodium 136, Potassium 3.8, Chloride 101, Carbon Dioxide 9 L*, Anion Gap 29.8 H, BUN 13, Creatinine 1.00, Estimated Creat Clear 106, Estimated GFR 61, Est GFR ( Amer) 74, Glucose 154 H, Calcium 8.9, Magnesium 1.9, Total Bilirubin 0.8, AST 156 H, ALT 135 H, Alkaline Phosphatase 195 H, Total Protein 8.4 H, Albumin 5.1 H , Globulin 3.3 H, Albumin/Globulin Ratio 1.5, Serum HCG, Qual Negative, S alicylates < 1.0 L, Acetaminophen < 10 L, Plasma/Serum Alcohol < 10, Acetone Level None detected, HIV 1&2 Antibody Rapid Nonreactive 10/01/24 12:38: Urine Color Yellow, Urine Appearance Clear, Urine pH 6.0, Ur Specific [place] 1.020, Urine Protein Trace, Urine Glucose (UA) Negative, Urine Ketones Negative, Urine Blood Trace-i, Urine Nitrate Negative, Urine Bilirubin Negative, Urine Urobilinogen 1.0, Ur Leukocyte Esterase Negative, Urine RBC None, Urine WBC 5-10, Ur Squamous Epith Cells 10-20, Urine Bacteria 1+ 10/01/24 13:03: Urine Opiates Screen Negative, Urine Methadone Screen Negative, Ur Barbituates Screen Negative, Ur Phencyclidine Scrn Negative, Ur Amphetamines Screen Negative, U Benzodiazepines Scrn Negative, Urine Cocaine Screen Negative, U Marijuana (THC) Screen Positive H 10/01/24 13:33: VBG pH 7.42 H, VBG pCO2 36.0, VBG pO2 68.5 H, VBG HCO3 22.7 L, VBG Total CO2 23.8, VBG O2 Saturation 94.0 H, VBG Base Excess -1.9, VBG Lactic Acid 2.2 H 10/01/24 13:45: Lactate 1.2 10/01/24 14:11: Sodium 131 L, Potassium 4.7 D, Chloride 101, Carbon Dioxide 24, Anion Gap 10.7, BUN 13, Creatinine 0.70 D, Estimated Creat Clear 151, Estimated GFR 92, Est GFR ( Amer) 112 D, Glucose 105 H D, Calcium 8.2 L 10/01/24 11:38 10/01/24 14:11 Orders (Tests/Meds): ED MEDICATIONS Discontinued Medications Generic Name Dose Route Start Last Admin Trade Name Freq PRN Reason Stop Dose Admin Levetiracetam 3,000 mg/ Sodium 130 mls @ 260 mls/hr 10/01/24 12:48 10/01/24 13:06 Chloride IV 10/01/24 12:49 260 mls/hr ONCE ONE Administration Sodium Chloride 1,000 mls @ 999 mls/hr 10/01/24 13:43 10/01/24 13:53 Sod Chlor 0.9% 1000ml Bag IV 10/01/24 14:43 999 mls/hr .Q1H1M ONE Administration Iopamidol 80 ml 10/01/24 13:36 10/01/24 13:37 Iopamidol-370 (76%);100ml Bottle IV 10/01/24 13:37 80 ml ONCE ONE Administration Sodium Chloride 50 ml 10/01/24 13:36 10/01/24 13:37 Sodium Chloride 0.9% 50ml Bag IV 10/01/24 13:37 50 ml ONCE ONE Administration Sodium Chloride 10 ml 10/01/24 13:36 10/01/24 13:37 Sodium Chloride 0.9% 10ml Syr (Rad Only) IV 10/01/24 13:37 10 ml ONCE ONE Administration ORDERS Category Date Time Status CT angio head Stat Cat Scan 10/01/24 12:[address] angio neck Stat Cat Scan 10/01/24 12:[address] head/brain wo con Stat Cat Scan 10/01/24 12:48 Completed Acetaminophen Stat Lab 10/01/24 11:38 Completed Acetone, Serum (Rapid) Stat Lab 10/01/24 11:38 Completed BMP [Basic Metabolic Panel] Stat Lab 10/01/24 14:11 Completed CBC w/Auto Diff [Complete Blood Count Auto Diff] Stat Lab 10/01/24 11:38 Completed CMP [Comprehensive Metabolic Panel] Stat Lab 10/01/24 11:38 Completed Ethyl Alcohol Stat Lab 10/01/24 11:38 Completed HIV (1&2) Antibody Rapid Stat Lab 10/01/24 11:38 Completed Hep C Ab with Reflex to RNA Stat Lab 10/01/24 12:16 Ordered Hepatitis Panel Stat Lab 10/01/24 14:11 Received Lactic Acid Stat Lab 10/01/24 13:45 Completed MAG [Magnesium] Stat Lab 10/01/24 11:38 Completed Salicylate Stat Lab 10/01/24 11:38 Completed Serum [HCG Qualitative, Serum] Stat Lab 10/01/24 11:38 Completed UA [Urinalysis and Microscopic] Stat Lab 10/01/24 12:38 Completed UDS [Drug Screen,Urine] Stat Lab 10/01/24 13:03 Completed Blood Culture Stat Micro 10/01/24 13:31 Received VBG [Venous Blood Gas] Stat RT 10/01/24 13:33 Completed ECG Data Tracing #1: I reviewed this ECG and interpreted as documented below: Sinus tachycardia with a ventricular rate of [address] changes concerning for ischemia. Normal axis. ECG initial impression date: 10/01/24 ECG initial impression time: 11:47 Medical Decision Narrative: In summary, this patient is a 39-year-old female presenting to the Emergency Department for evaluation of new onset seizure. Differential diagnoses considered include but are not limited to intracranial mass, intracranial emerge, hypoglycemia, electrolyte derangement, medication adverse reaction. Ruling out the most morbid conditions drove assessment. On exam, the patient is lying in bed in no acute distress. She is mildly tachycardic but otherwise vitals are reassuring on cardiac telemetry. She is alert and neurologically intact without focal deficits. No specific concerns or complaints at this time. Workup included broad lab evaluation to evaluate for infectious, metabolic causes of her new onset seizure as well as CT head and CT angiograms of the head and neck given history of brain aneurysm and surgery. She was given a bolus of IV fluids and loaded with 3 g of Keppra. I independently interpreted CT scans prior to the radiologist read and noted no acute intracranial hemorrhage. Please see their read for final interpretation. Labs were obtained that demonstrated initial anion gap metabolic acidosis. Unfortunately I did not initially obtain a lactic acid, however I did obtain it after some time and it was slightly elevated. By that time, her metabolic acidosis had resolved. I suspect that it was transiently present given seizure. She does have transaminitis, which is chronic but slightly worsened. Bilirubin is normal. She complains of no abdominal symptoms. I feel she can follow-up with outpatient primary care provider for this, which I did notified her of as well as her family. On multiple subsequent reassessments, the patient is pleasant, conversational, and has no focal neurologic deficits. Vitals are normal on cardiac telemetry.Transient metabolic acidosis resolved, which was likely related to seizure. Labs otherwise reassuring without significant derangements. Given this, I do feel that she is appropriate for discharge home with diagnosis of first-time seizure, treatment with Keppra given her previous aneurysm and brain surgery, as well as close follow-up outpatient. She was given instructions for follow-up with primary care as well as neurology. I prescribed 500 mg of Keppra to take twice daily and gave her seizure precautions including avoiding driving or operating heavy machinery. She expressed understanding and agreement. She was discharged after all questions were answered. Critical Care Critical Care Time Critical Care Time: Yes Attestation: On 10/01/24, the high probability of a clinically significant, sudden or life threatening deterioration of the following system(s) required my full and direct attention, intervention and personal management. The time I documented below is in addition to time spent performing reported procedures but includes the following listed in this critical care notation. Total Time Total Critical Care Time: 30
[2024-10-01 14:29] LABS: Chloride 101 mmol/L (98-107); Sodium 131 mmol/L (136-145)
[2024-10-01 14:30] LABS: Potassium 4.7 mmoL/L (3.5-5.1)
[2024-10-01 14:32] LABS: Lactic Acid 1.2 mmol/L (0.7-2.1)
[2024-10-01 14:32] LABS: Blood Urea Nitrogen 13 mg/dl (7-17); Creatinine Clearance Estimated 151 mL/min (50-200); Estimated Glomerular Filt Rate 92 ml/min (>60); GFR (African American) 112 ML/MIN (>60)
[2024-10-01 14:33] LABS: Anion Gap 10.7 mEq/L (5-15); Calcium 8.2 mg/dl (8.4-10.2); Carbon Dioxide 24 mmol/L (22.0-30.0); Glucose 105 mg/dl (74-100)
[2024-10-01 14:47] LABS: Bacteria,Urine 1+ /lpf
[2024-10-01 15:08] VITALS: BP 121/86; PULSE 80; RESP 18; TEMP 36.8; O2SAT 97
[2024-10-01 17:45] LABS: Reflex Lactic Add Lactic Reflex
[2024-10-04 19:09] LABS: HBsAg Screen Negative (Negative); HCV Ab Reactive (Non Reactive); Hep A Ab, IGM Negative (Negative); Hep B Core Ab, IgM Negative (Negative)
== END 2024-10-01 15:09 | disposition home or self-care (01) ==
PROVIDERS: Emergency Provider Emergency Medicine; PCP Internal Medicine
DX: R56.9 Unspecified convulsions (principal); R74.01 Elevation of levels of liver transaminase levels
CPT/HCPCS: 70450; 70496; 70498; 80048; 80053; 80074; 80307; 80320; 80329; 81001; 82009; 82803; 83605; 83735; 84703; 85007; 85025; 85027; 87040; 87389; 93005; 96361; 96374; 99291; G0480; J1953; J7030; Q9967

== ENCOUNTER 2024-10-17 07:40 | Outpatient (CLI) | payer BC, SELFPAY ==
--- NOTE | 2024-10-17 07:41 | US_ITS ---
FINAL REPORT CLINICAL HISTORY: Transaminitis COMPARISON: None FINDINGS: ULTRASOUND ABDOMEN LIMITED: Sonographic images of the right upper quadrant were obtained. The pancreas is partially obscured. There is fatty infiltration of the liver. The gallbladder has been surgically resected. There is no evidence of biliary ductal dilatation.The common duct measures 4mm. Limited images of the right kidney are unremarkable. IMPRESSION: Prior cholecystectomy. Fatty infiltration of the liver without evidence of biliary ductal dilatation. Reviewed, Interpreted and Dictated by Juan Jose Strauss MD Transcribed by Ana Howe Authenticated and [facility]
== END 2024-10-17 23:59 | disposition home or self-care (01) ==
LOC: RAD 07:41
PROVIDERS: PCP Nurse Practitioner Family; Visit Provider Nurse Practitioner Family
DX: R74.01 Elevation of levels of liver transaminase levels (principal)
CPT/HCPCS: 76705

== ENCOUNTER → 2024-11-15 09:11 | Outpatient (CLI) | payer BC, SELFPAY | LOC: SL 09:12 | PROVIDERS: PCP Nurse Practitioner Family; Visit Provider Nurse Practitioner Family | DX: G47.33 Obstructive sleep apnea (adult) (pediatric) (principal); R06.83 Snoring; R40.0 Somnolence | CPT/HCPCS: G0399 ==

== ENCOUNTER 2024-12-19 15:30 | Outpatient (CLI) | payer OTHER, SELFPAY ==
[2024-12-19 19:20] LABS: Albumin Level 4.6 g/dl (3.5-5.0)
[2024-12-19 19:23] LABS: Alanine Aminotransferase 123 U/L (12-78); Alkaline Phosphatase 173 U/L (38-126); Aspartate Amino Transferase 55 U/L (14-36); Bilirubin,Direct 0.2 mg/dl (0.0-0.4); Bilirubin,Indirect 0.3 mg/dL (0.0-0.9); Bilirubin,Total 0.5 mg/dl (0.2-1.3); Bilirubin,Unconjugated 0.3 mg/dL (0.0-1.1); Total Protein,Serum 7.4 g/dl (6.3-8.2)
== END 2024-12-19 23:59 | disposition home or self-care (01) ==
LOC: LAB.DROPOF 12-20 10:11
PROVIDERS: PCP Internal Medicine; Visit Provider Internal Medicine
DX: R76.8 Other specified abnormal immunological findings in serum (principal)
CPT/HCPCS: 80076

== ENCOUNTER 2025-01-26 03:31 | Emergency (ER) | payer OTHER, SELFPAY ==
[2025-01-26 03:32] VITALS: BP 115/110; PULSE 118; RESP 20; TEMP 36.6; O2SAT 99; BMI 25.6
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
[2025-01-26 03:51] VITALS: BP 161/92; PULSE 103; RESP 20; TEMP 36.7; O2SAT 99
--- NOTE | 2025-01-26 04:05 | PC.NURSE ---
pt out of room for testing.
[2025-01-26 04:08] LABS: Basophils % 0.2 % (0.1-2.0); Hematocrit 40.8 % (37.0-47.0); Hemoglobin 14.3 g/dL (12.2-16.2); Lymphocytes # 3.6 K/mm3 (0.7-4.5); Lymphocytes % 39.2 % (10-50); Mean Corpuscular Hemoglobin 34.2 pg (27.0-31.2); Mean Corpuscular Volume 97.6 fl (81-99); Mean Platelet Volume 9.7 fl (7.4-10.4); Monocytes # 0.6 K/mm3 (0.1-1.0); Monocytes % 6.6 % (1.7-9.3); Neutrophils # 4.9 K/mm3 (1.8-7.8); Neutrophils % 53.8 % (37.0-80.0); Platelet Count 225 K/mm3 (142-424); Red Blood Count 4.18 M/mm3 (4.20-5.40); Red Cell Distribution Width 12.5 % (11.5-17.5); White Blood Count 9.2 K/mm3 (4.8-10.8)
[2025-01-26 04:17] LABS: Albumin Level 4.6 g/dl (3.5-5.0); Chloride 101 mmol/L (98-107); Potassium 3.2 mmoL/L (3.5-5.1); Sodium 139 mmol/L (136-145)
[2025-01-26 04:20] LABS: Alanine Aminotransferase 127 U/L (12-78); Albumin/Globulin Ratio 1.8 (1.1-1.8); Alkaline Phosphatase 155 U/L (38-126); Anion Gap 14.2 mEq/L (5-15); Aspartate Amino Transferase 139 U/L (14-36); Bilirubin,Total 0.5 mg/dl (0.2-1.3); Blood Urea Nitrogen 8 mg/dl (7-17); Calcium 8.9 mg/dl (8.4-10.2); Carbon Dioxide 27 mmol/L (22.0-30.0); Creatinine Clearance Estimated 106 mL/min (50-200); Estimated Glomerular Filt Rate 92 ml/min (>60); GFR (African American) 112 ML/MIN (>60); Globulin 2.5 g/dL (1.3-3.2); Glucose 103 mg/dl (74-100); Total Protein,Serum 7.1 g/dl (6.3-8.2)
[2025-01-26 04:22] LABS: INR 0.97 (0.9-1.1); Prothrombin Time 10.9 seconds (10.1-12.5)
--- NOTE | 2025-01-26 04:27 | PC.NURSE ---
pt returned from radiology at this time with no incident.
--- NOTE | 2025-01-26 04:30 | PC.NURSE ---
provider at the bedside at this time
--- NOTE | 2025-01-26 04:33 | PC.NURSE ---
eye box pulled from [email or web address] and given to provider.
[2025-01-26] MEDS: IOPAMIDOL-370 (76%);100ML BOTTLE 80 ML IV (04:38)
[2025-01-26] MEDS: SODIUM CHLORIDE 0.9% 10ML SYR (RAD ONLY) 10 ML IV (04:38)
[2025-01-26] MEDS: TETRACAINE 0.5% OPTH SOL 15ML OP (04:47)
[2025-01-26] MEDS: FLUORESCEIN SODIUM 1MG STRIP 1 MG OP (04:47)
== END 2025-01-26 05:31 | disposition home or self-care (01) ==
PROVIDERS: Emergency Provider Emergency Medicine; PCP Internal Medicine
DX: T71.193A Asphyxiation due to mechanical threat to breathing due to other causes, assault, initial encounter (principal); S00.83XA Contusion of other part of head, initial encounter; G89.11 Acute pain due to trauma; Y04.8XXA Assault by other bodily force, initial encounter
CPT/HCPCS: 70450; 70486; 70496; 70498; 72125; 80053; 85025; 85610; 99291; Q9967

== ENCOUNTER 2025-03-17 12:31 | Outpatient (CLI) | payer OTHER, SELFPAY ==
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
== END 2025-03-17 23:59 | disposition home or self-care (01) ==
LOC: RAD 12:32
PROVIDERS: PCP Nurse Practitioner Family; Visit Provider Nurse Practitioner Family
DX: G50.1 Atypical facial pain (principal); R22.0 Localized swelling, mass and lump, head; S00.83XA Contusion of other part of head, initial encounter
CPT/HCPCS: 70150

== ENCOUNTER 2025-03-27 15:06 | Outpatient (CLI) | payer OTHER, SELFPAY ==
--- NOTE | 2025-03-27 15:08 | XR_ITS ---
FINAL REPORT TECHNIQUE: Chest PA & Lateral CLINICAL HISTORY: cough/chest congestion COMPARISON: 10/13/2020 FINDINGS: 2 views of the chest were performed. The heart size is normal. The mediastinum is within normal limits. There is no acute cardiopulmonary process. There are no pleural effusions. There is no pneumothorax. The bony thorax appears intact. IMPRESSION: No acute cardiopulmonary process. Reviewed, Interpreted and Dictated by Juan Jose Strauss MD Transcribed by Ana Howe Authenticated and [facility]
== END 2025-03-27 23:59 | disposition home or self-care (01) ==
LOC: RAD 15:06
PROVIDERS: PCP Nurse Practitioner Family; Visit Provider Nurse Practitioner
DX: R09.89 Other specified symptoms and signs involving the circulatory and respiratory systems (principal); R05.9 Cough, unspecified
CPT/HCPCS: 71046

== ENCOUNTER → 2025-04-02 20:30 | Outpatient (CLI) | payer OTHER, SELFPAY | LOC: SL 20:32 | PROVIDERS: Visit Provider Specialist | DX: G47.33 Obstructive sleep apnea (adult) (pediatric) (principal) | CPT/HCPCS: 95811 ==

== ENCOUNTER 2025-06-22 10:42 | Outpatient (CLI) | payer OTHER, SELFPAY ==
--- OUTSIDE RECORDS SUMMARY | 2025-05-29 12:17 | XMS_ITS | Encounter Summary ---
Author Organization [facility] Address [address] 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) History of craniotomy Procedures MR Head wo IV Contrast Maxi Espinoza MD [address] [address] Phone: tel: fax: Referral ID Status Reason Start Date Expiration Date Visits Re quested Visits Authorized [id number] Closed 02/19/2025 08/21/2026 1 1 Reason for Visit * Imaging (Routine) - Closed Specialty Diagnoses / Procedures Referred By Stacia doe Referred To Contact Radiology Diagnoses 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 [place] [address] Symptomatic localization-relate d epilepsy; Nontraumatic [...] Description 07/23/2025 10:30 AM EDT Office Visit [facility] [address] [facility], [address] [place] [id number] Maxi Espinoza MD [address] [place] [address] 07/29/2025 12:30 PM EDT Appointment [facility] [address] [facility] [address] [place] [address] 07/31/2025 12:30 PM EDT Appointment [facility] [address] [facility] [address] [place] [address] documented as of this encounter Procedures Procedure [...] error, please notify the sender immediately at [phone] and permanently delete the original report and destroy any copies or printouts. Narrative 06/01/2025 6:36 AM EDT [facility] - Phone Outpatient NAME: Caroline Mcdonald DATE OF EXAM: 05/29/2025 Patient No: [id number] Physician: Sunday Date of : 1985 Past [...] Mcdonald DATE OF EXAM: 05/29/2025 Patient No: [id number] Physician: Sunday Date of : 1985 Past [...] to the under stroke service from 03/23 [id number]/21 with a left frontal intracerebral hemorrhage, which [...] in error, pleasenotify the sender immediately at [phone] and permanently delete theoriginal report and destroy [...] documented as of this encounter Care Teams Char Belt Operator Relationship Specialty Start Date End Date Richi Iyer APRN [address] [place] [id number] PCP - General 11/08/24 Nishi Sarabia APRN, [facility] [address] [facility] [place] [address] Nurse Practitioner Neurosurgery 06/14/21 Finn Brambila MD [address] [place] [address] Surgeon Neurosurgery 07/12/21 documented as of this encounter
--- OUTSIDE RECORDS SUMMARY | 2025-06-22 10:45 | XMS_ITS | Clinical Summary ---
Author Organization [facility] Address [address] [place] [address] Phone Care Team Providers Care Ingredient Scaler Name Role Phone Unavailable Unavailable Conditions or Problems No information available. Medications No information available. Medications Administered No information available. Allergies, Adverse Reactions, Alerts No information available. Results No information available. Plan of Care No information available. Procedures No information available. Vital Signs No information available. Immunizations No information available. Advance Directives No information available.
--- OUTSIDE RECORDS SUMMARY | 2025-06-22 10:45 | XMS_ITS | Encounter Summary ---
Author Organization Healthcare Address [address] [address] Care Team Providers Care Esthetician Spa Name Role Phone No Nishi Leung APRN, DNP Unavailable [phone] Finn Brambila MD Unavailable [phone] Richi Iyer APRN Primary Care Provider [phone] Encounter Details Date Type Department Care Team (Latest Contact Info) Description 05/29/2025 Travel Social History Tobacco Use Types Packs/Day Years [...] on file documented as of this encounter Plan of Treatment Upcoming Encounters Date Type Department Care Team (Late st Contact Info) Description 07/23/2025 10:30 AM EDT Office Visit [facility] [address] [facility], [address] [place] [address] Maxi Espinoza MD [address] [place] [address] 07/29/2025 12:30 PM EDT Appointment [facility] [address] [place] [address] 07/31/2025 12:30 PM EDT Appointment [facility] [address] [place] [address] documented as of this encounter Visit Diagnoses Not on filedocumented in this encounter Additional Health Concerns Assessment Noted Time A fall risk assessment has been complete d for the patient 02/19/2025 8:05 AM EDT A Body Mass Index follow-up plan has been documented for the patient 02/19/2025 10:08 AM EDT documented as of this encounter Care Teams Esthetician Spa Relationship Specialty Start Date End Date Richi Iyer APRN [address] [place] [address] PCP - General 11/08/24 Nishi Sarabia APRN, [place] [address] [place] [address] Nurse Practitioner Neurosurgery 06/14/21 Finn Brambila MD [address] [place] [address] Surgeon Neurosurgery 07/12/21 documented as of this encounter
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
--- OUTSIDE RECORDS SUMMARY | 2025-06-22 10:45 | XMS_ITS | Encounter Summary ---
Author Organization Healthcare Address [address] [place] [address] Care Team Providers Care Supervisor Slashing Department Name Role Phone No Nishi Leung APRN, DNP Unavailable [phone] Finn Brambila MD Unavailable [phone] Richi Iyer APRN Primary Care Provider [phone] Encounter Details Date Type Department Care Team (Latest Contact Info) Description 05/24/2025 Travel Social History Tobacco Use Types Packs/Day [...] 10:30 AM EDT Office Visit [facility] [address] [facility], [address] [place] [address] Maxi Espinoza MD [address] [place] [address] 07/29/2025 12:30 PM EDT Appointment [facility] [address] [place] [address] 07/31/2025 12:30 PM EDT Appointment [facility] [address] [place] [address] documented as of this encounter Visit Diagnoses Not on filedocumented in this encounter Additional Health Concerns Assessment Noted Time A fall risk assessment has been complete d for the patient 02/19/2025 8:05 AM EDT A Body Mass Index follow-up plan has been documented for the patient 02/19/2025 10:08 AM EDT documented as of this encounter Care Teams Supervisor Slashing Department Relationship Specialty Start Date End Date Richi Iyer APRN [address] [place] [address] PCP - General 11/08/24 Nishi Sarabia APRN, [facility] [address] [place] [address] Nurse Practitioner Neurosurgery 06/14/21 Finn Brambila MD [address] [place] [address] Surgeon Neurosurgery 07/12/21 documented as of this encounter
[2025-06-22 10:55] LABS: Adenovirus F 40/41, stool Not Detected (NotDetected); Clostridium Difficile A/B, PCR Not Detected (NotDetected); Cyclospora Cayetanesis Not Detected (NotDetected); Plesimonas Shigalloides, PCR Not Detected (NotDetected); Salmonella, PCR Not Detected (NotDetected); Shiga-like toxin E coli Not Detected (NotDetected); Shigella Enterovasive E coli Not Detected (NotDetected); Vibrio, PCR Not Detected (NotDetected); Yersinia Entercolitica, PCR Not Detected (NotDetected)
== END 2025-06-22 23:59 | disposition home or self-care (01) ==
LOC: LAB.DROPOF 10:43
PROVIDERS: PCP Nurse Practitioner Family; Visit Provider Nurse Practitioner Family
DX: R19.7 Diarrhea, unspecified (principal)
CPT/HCPCS: 87506

== ENCOUNTER 2025-07-01 14:00 | Outpatient (CLI) | payer OTHER, SELFPAY ==
--- OUTSIDE RECORDS SUMMARY | 2025-05-29 12:17 | XMS_ITS | Encounter Summary ---
Author Organization [facility] Address [address] 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) History of craniotomy Procedures MR Head wo IV Contrast Maxi Espinoza MD [address] [address] Phone: tel: fax: Referral ID Status Reason Start Date Expiration Date Visits Re quested Visits Authorized [id number] Closed 02/19/2025 08/21/2026 1 1 Reason for Visit * Imaging (Routine) - Closed Specialty Diagnoses / Procedures Referred By Stacia doe Referred To Contact Radiology Diagnoses 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); History of craniotomy Discharge Disposition: Home or Self Care Social History Tobacco Use Types Packs/Day Years Used Date Smoking Tobacco: Former Cigarettes Smokeless Tobacco: Never Alcohol Use Standard Drinks/Week Comments No 0 (1 standard drink = 0.6 oz pur e alcohol) Comments No Sex and Gender Information Value Date Recorded Sex Assigned at Not on file Legal Sex Female 8:39 PM EDT Gender Identity Not on file Sexual Orientation Not on file documented as of this encounter Medications at Time of Discharge buprenorphine-na loxone (Suboxone) 8-2 MG SL tablet TAKE 2 SUBLINGUAL TABLETS ONCE A DAY 12/22/2020 busPIRone (Buspar) 10 MG tablet Take 10 mg by mouth 3 (three) times a day. 06/04/2021 famotidine (Pepcid) 40 MG tablet Take 40 mg by mouth 1 (one) time each day. 06/04/2021 FLUoxetine (PROzac) 20 MG capsule Take 20 mg by mouth 1 (one) time each day. FLUoxetine (PROzac) 40 MG capsule Take 40 mg by mouth 1 (one) time each day. 05/12/2021 levETIRAcetam XR (Keppra XR) 500 MG 24 hr tablet Take 2 tablets by mouth daily. Do not crush, chew, or split. lisinopril 10 MG tablet Take 10 mg by mouth 1 (one) time each day. 05/14/2021 prazosin (Minipress) 1 MG capsule Take 1 mg by mouth 1 (one) time each day. 06/30/2021 ProAir HFA 108 (90 Base) MCG/ACT inhaler every 6 (six) hours if needed. 04/08/2021 QUEtiapine (SEROquel) 200 MG tablet Take 200 mg by mouth 1 (one) time each day. 03/02/2021 documented as of this encounter Plan of Treatment Upcoming Encounters Date Type Department Care Team (Late st Contact Info) Description 07/23/2025 10:30 AM EDT Office Visit [facility] [address] [facility] [place] [place] [address] [place] [id number] Maxi Espinoza MD [address] [place] [address] 07/29/2025 12:30 PM EDT Appointment [facility] [address] [facility] [address] [place] [address] 07/31/2025 12:30 PM EDT Appointment [facility] [address] [facility] [address] [place] [address] documented as of this encounter Procedures Procedure Name Priority Date/Time Associated Diagnosis Comments MR HEAD WO IV CONTRAST Routine 05/29/2025 12:55 PM EDT Symptomatic localization-relate d epilepsy 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 Minimal FLAIR-hyperintense signal adjacent to the frontal horn of the right lateral ventricle could be related to prior infectious/inflammatory process or migraine headaches. No acute intracranial process. Symmetric temporal lobes and hippocampi bilaterally without focal signal normality or asymmetry. Umesh Cunningham M.D. This report has been electronically signed and verified by the Radiologist whose name is printed above. This report contains privileged and confidential information and is intended solely for the use of the individual or entity to which it is addressed. If you are not the intended recipient of this report, you are hereby notified that any copying, distribution, dissemination or action taken in relation to the contents of this report is strictly prohibited and may be unlawful. If you have received this report in error, please notify the sender immediately at [phone] and permanently delete the original report and destroy any copies or printouts. 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 02/19/25: 39 y.o. 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 A conventional angiogram demonstrated no mycotic aneurysms... Indication: Seizure disorder, clinical change. Technique: Multiplanar multisequence MRI of the brain without administration of intravenous contrast. Comparison: Head CT from 09/05/2021. Findings: Volume loss with some hemosiderin deposition as well as FLAIR-hyperintense signal involving the left frontal lobe, likely related to prior hemorrhage status post evacuation.. Minimal FLAIR-hyperintense signal adjacent to the frontal horn of the right lateral ventricle could be related to prior infectious/inflammatory process or migraine headaches. No evidence of restricted diffusion to suggest acute territory infarct. No midline shift, lesion, hydrocephalus. Symmetric temporal lobes and hippocampi bilaterally without focal signal abnormality or asymmetry. Age-appropriate ventricular size and configuration. Basal cisterns are patent. Major cranial flow voids are preserved. Paranasal sinuses and mastoid air cells are clear. Normal orbits. Calvarium and overlying soft tissues appear unremarkable. Procedure Note Umesh Cunningham MD - 06/01/2025 [facility] - Phone Outpatient NAME: Caroline Mcdonald DATE OF EXAM: 05/29/2025 Patient No: [id number] Physician: Sunday Date of : 1985 Past Medical/Surgical History (entered by technologist): Symptoms/Reason For Exam (entered by technologist): Seizure disorder,clinical change Tech Notes (entered by technologist): No contrast; Dx: Symptomaticlocalization-related epilepsy; Nontraumatic cortical hemorrhage of leftcerebral hemisphere; History of craniotomy. 02/19/25: 39 y.o. right- handedfemale who presents [facility] for evaluation of a single episodeof GTC...admitted to the under stroke service from 03/23 [id number]/07/21 with a left frontal intracerebral hemorrhage, which was suspectedsecondary to vasospasm induced by heavy marijuana use. A conventionalangiogram demonstrated no mycotic aneurysms... Indication: Seizure disorder, clinical change. Technique: Multiplanar multisequence MRI of the brain withoutadministration of intravenous contrast. Comparison: Head CT from 09/05/2021. Findings: Volume loss with some hemosiderin deposition as well as FLAIR-hyperintensesignal involving the left frontal lobe, likely related to prior hemorrhagestatus post evacuation.. Minimal FLAIR-hyperintense signal adjacent tothe frontal horn of the right lateral ventricle could be related to priorinfectious/inflammatory process or migraine headaches. No evidence of restricted diffusion to suggest acute territory infarct.No midline shift, lesion, hydrocephalus. Symmetric temporal lobes and hippocampi bilaterally without focal signalabnormality or asymmetry. Age-appropriate ventricular size and configuration. Basal cisterns arepatent. Major cranial flow voids are preserved. Paranasal sinuses and mastoid air cells are clear. Normal orbits. Calvarium and overlying soft tissues appear unremarkable. IMPRESSION: Volume loss with some hemosiderin deposition as well as FLAIR-hyperintensesignal involving the left frontal lobe, likely related to prior hemorrhagestatus post evacuation.. Minimal FLAIR-hyperintense signal adjacent tothe frontal horn of the right lateral ventricle could be related to priorinfectious/inflammatory process or migraine headaches. No acute intracranial process. Symmetric temporal lobes and hippocampibilaterally without focal signal normality or asymmetry. Umesh Cunningham, M.D. This report has been electronically signed and verified by the Radiologistwhose name is printed above. This report contains privileged and confidential information and isintended solely for the use of the individual or entity to which it isaddressed. If you are not the intended recipient of this report, you arehereby notified that any copying, distribution, dissemination or actiontaken in relation to the contents of this report is strictly prohibitedand may be unlawful. If you have received this report in error, pleasenotify the sender immediately at [phone] and permanently delete theoriginal report and destroy any copies or printouts. 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 [place] [address] [facility] [place] [address] Nurse Practitioner Neurosurgery 06/14/21 Finn Brambila MD [address] [place] [address] Surgeon Neurosurgery 07/12/21 documented as of this encounter
--- OUTSIDE RECORDS SUMMARY | 2025-07-01 14:12 | XMS_ITS | Clinical Summary ---
Author Organization [facility] Address [address] [place] [address] Phone Care Team Providers Care Pick Up Name Role Phone Unavailable Unavailable Conditions or Problems No information available. Medications No information available. Medications Administered No information available. Allergies, Adverse Reactions, Alerts No information available. Results No information available. Plan of Care No information available. Procedures No information available. Vital Signs No information available. Immunizations No information available. Advance Directives No information available.
--- OUTSIDE RECORDS SUMMARY | 2025-07-01 14:13 | XMS_ITS | Encounter Summary ---
Author Organization Healthcare Address [address] [place] [address] Care Team Providers Care Wireless Sales Associate Name Role Phone No Nishi Leung APRN, DNP Unavailable [phone] Finn Brambila MD Unavailable [phone] Richi Iyer APRN Primary Care Provider [phone] Encounter Details Date Type Department Care Team [...] 10:30 AM EDT Office Visit [facility] [address] [facility], [address] [place] [address] Maxi Espinoza MD [address] [place] [address] 07/29/2025 12:30 PM EDT Appointment [facility] [address] [place] [address] 07/31/2025 12:30 PM EDT Appointment [facility] [address] [place] [address] documented as of this encounter Visit Diagnoses Not on filedocumented in this encounter Additional Health Concerns Assessment Noted Time A fall risk assessment has been complete d for the patient 02/19/2025 8:05 AM EDT A Body Mass Index follow-up plan has been documented for the patient 02/19/2025 10:08 AM EDT documented as of this encounter Care Teams Wireless Sales Associate Relationship Specialty Start Date End Date Richi Iyer APRN [address] [place] [address] PCP - General 11/08/24 Nishi Sarabia APRN, [facility] [address] [place] [address] Nurse Practitioner Neurosurgery 06/14/21 Finn Brambila MD [address] [place] [address] Surgeon Neurosurgery 07/12/21 documented as of this encounter
--- OUTSIDE RECORDS SUMMARY | 2025-07-01 14:13 | XMS_ITS | Encounter Summary ---
Author Organization Healthcare Address [address] [place] [address] Care Team Providers Care Wire Rigger Name Role Phone No Nishi Leung APRN, DNP Unavailable [phone] Finn Brambila MD Unavailable [phone] Richi Iyer APRN Primary Care Provider [phone] Encounter Details Date Type Department Care Team [...] 10:30 AM EDT Office Visit [facility] [address] [facility] [address], [address] [place] [address] Maxi Espinoza MD [address] [place] [address] 07/29/2025 12:30 PM EDT Appointment [facility] [address] [place] [address] 07/31/2025 12:30 PM EDT Appointment [facility] [address] [place] [address] documented as of this encounter Visit Diagnoses Not on filedocumented in this encounter Additional Health Concerns Assessment Noted Time A fall risk assessment has been complete d for the patient 02/19/2025 8:05 AM EDT A Body Mass Index follow-up plan has been documented for the patient 02/19/2025 10:08 AM EDT documented as of this encounter Care Teams Wire Rigger Relationship Specialty Start Date End Date Richi Iyer APRN [address] [place] [address] PCP - General 11/08/24 Nishi Sarabia APRN, [facility] [address] [place] [address] Nurse Practitioner Neurosurgery 06/14/21 Finn Brambila MD [address] [place] [address] Surgeon Neurosurgery 07/12/21 documented as of this encounter
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
== END 2025-07-01 23:59 | disposition home or self-care (01) ==
LOC: RAD 14:01
PROVIDERS: PCP Nurse Practitioner Family; Visit Provider Nurse Practitioner Family
DX: Z12.31 Encounter for screening mammogram for malignant neoplasm of breast (principal)
CPT/HCPCS: 77063; 77067